=== PATIENT | female | born 1985 | race Hispanic/Latino ===

== ENCOUNTER 2017-12-25 16:42 | Emergency (ER) | payer OTHER ==
[2017-12-25] MEDS ORDERED: KETOROLAC TROMETHAMINE 60 MG/2 ML VIAL ONE (17:50)
[2017-12-25] MEDS ORDERED: DEXAMETHASONE SOD PHOSPHATE 10MG/ML 1ML VIAL ONE (17:50)
== END 2017-12-25 18:02 | disposition home or self-care (01) ==
LOC: EDH 16:42
DX: S16.1XXA Strain of muscle, fascia and tendon at neck level, initial encounter (principal); S29.012A Strain of muscle and tendon of back wall of thorax, initial encounter; Z88.2 Allergy status to sulfonamides; W01.0XXA Fall on same level from slipping, tripping and stumbling without subsequent striking against object, initial encounter; Y93.89 Activity, other specified; Y92.89 Other specified places as the place of occurrence of the external cause; Y99.8 Other external cause status
CPT/HCPCS: 96372 ×2; 99284; J1100; J1885

== ENCOUNTER 2018-09-17 23:56 | Emergency (ER) | payer OTHER, SELFPAY ==
[2018-09-18 00:23] LABS: APPEARANCE,URINE Clear (CLEAR); BILIRUBIN,URINE Negative (NEGATIVE); COLOR,URINE Yellow (YELLOW); GLUCOSE, URINE (UA) Negative (NEGATIVE); KETONES,URINE Negative (NEGATIVE); LEUKOCYTE ESTERASE ,URINE Small (NEGATIVE); NITRATE,URINE Negative (NEGATIVE); OCCULT BLOOD,URINE Large (NEGATIVE); PH,URINE 6.5 (5.0-8.0); PROTEIN,URINE Negative (NEGATIVE); UROBILINOGEN,URINE 0.2 mg/dL (0.2-1.0)
[2018-09-18 00:41] LABS: BACTERIA,URINE None Seen /HPF (None Seen); WBC,URINE 0-1 /HPF (0-1)
[2018-09-18 00:42] LABS: SQUAMOUS EPITHELIAL CELL,UR Rare /HPF (0-2)
[2018-09-18 01:09] LABS: BASOPHILS % (AUTO) 0.4 % (0.0-5.0); HEMATOCRIT 27.1 % (36-48); LYMPHOCYTES % (AUTO) 27.3 % (21.0-51.0); MEAN CORPUSCULAR HEMOGLOBIN 20.5 pg (27.0-33.0); MEAN CORPUSCULAR HGB CONC 31.1 g/dL (32.0-36.0); MEAN CORPUSCULAR VOLUME 65.9 fL (79-99); MONOCYTES % (AUTO) 5.5 % (3.0-13.0); NEUTROPHILS % (AUTO) 63.8 % (40.0-77.0); NUCLEATED RED BLOOD CELLS 0.1 % (0.0-0.19); PLATELET COUNT (AUTO) 230 K/uL (130-400); RED BLOOD CELL COUNT(AUTO) 4.11 MIL/uL (4.00-5.50); RED CELL DISTRIBUTION WIDTH 17.9 % (11.0-15.5); WHITE BLOOD COUNT (AUTO) 6.7 K/uL (4.8-10.8)
[2018-09-18 01:16] LABS: CREATININE 0.7 mg/dL (0.5-1.5); POTASSIUM 3.8 mmol/L (3.5-5.1)
== END 2018-09-18 02:16 | disposition home or self-care (01) ==
LOC: EDH 23:56
DX: N39.0 Urinary tract infection, site not specified (principal); G43.909 Migraine, unspecified, not intractable, without status migrainosus; Z88.2 Allergy status to sulfonamides; Z88.8 Allergy status to other drugs, medicaments and biological substances
CPT/HCPCS: 36415; 80048; 81001; 85025; 93005

== ENCOUNTER → 2019-01-16 | Outpatient (CLI) | payer OTHER | END | disposition home or self-care (01) | LOC: LAB 12:36 | PROVIDERS: ATTEND Internal Medicine Gastroenterology | DX: R10.12 Left upper quadrant pain (principal) | CPT/HCPCS: 36415; 86677 ==

== ENCOUNTER 2021-06-29 11:23 | Emergency (ER) | payer OTHER ==
[~2021-06-29] VITALS: Ht 170.2 cm; Wt 98.9 kg
[2021-06-29 11:29] VITALS: BP 116/77
[2021-06-29 11:53] LABS: APPEARANCE,URINE Clear (CLEAR); BILIRUBIN,URINE Negative (NEGATIVE); COLOR,URINE Yellow (YELLOW); GLUCOSE, URINE (UA) Negative (NEGATIVE); KETONES,URINE Negative (NEGATIVE); LEUKOCYTE ESTERASE ,URINE Negative (NEGATIVE); NITRATE,URINE Negative (NEGATIVE); OCCULT BLOOD,URINE Negative (NEGATIVE); PH,URINE 7.5 (5.0-8.0); PROTEIN,URINE Negative (NEGATIVE); UROBILINOGEN,URINE 0.2 mg/dL (0.2-1.0)
[2021-06-29 12:15] LABS: BASOPHILS % (AUTO) 0.5 % (0.0-5.0); EOSINOPHILS % (AUTO) 3.8 % (0.0-8.0); HEMATOCRIT 39.7 % (36-48); LYMPHOCYTES % (AUTO) 21.7 % (21.0-51.0); MEAN CORPUSCULAR HEMOGLOBIN 26.6 pg (27.0-33.0); MEAN CORPUSCULAR HGB CONC 31.7 g/dL (32.0-36.0); MEAN CORPUSCULAR VOLUME 83.8 fL (79-99); MONOCYTES % (AUTO) 5.5 % (3.0-13.0); PLATELET COUNT (AUTO) 199 K/uL (130-400); RED BLOOD CELL COUNT(AUTO) 4.74 MIL/uL (4.00-5.50); RED CELL DISTRIBUTION WIDTH 13.9 % (11.0-15.5); WHITE BLOOD COUNT (AUTO) 7.6 K/uL (4.8-10.8)
[2021-06-29 12:23] LABS: CREATININE 0.6 mg/dL (0.5-1.5); POTASSIUM 4.3 mmol/L (3.5-5.1)
[2021-06-29 12:27] LABS: ALBUMIN 3.2 g/dL (3.5-5.0); BILIRUBIN,TOTAL 0.4 mg/dL (0.2-1.0); TOTAL PROTEIN, SERUM 6.9 g/dL (6.0-8.3)
[2021-06-29] MEDS ORDERED: DIAZEPAM 5 MG TABLET PO ONE (13:30)
[2021-06-29] MEDS ORDERED: KETOROLAC 30MG VIAL (30MG/ML) IM ONE (13:30)
[2021-06-29] MEDS ORDERED: CYCL10TA16 PO (14:13)
[2021-06-29] MEDS ORDERED: NAPR500T6 PO (14:13)
== END 2021-06-29 14:32 | disposition home or self-care (01) ==
LOC: EDH 11:23
DX: M62.838 Other muscle spasm (principal); Z88.2 Allergy status to sulfonamides; Z88.8 Allergy status to other drugs, medicaments and biological substances; Z79.899 Other long term (current) drug therapy; Z98.890 Other specified postprocedural states
CPT/HCPCS: 36415; 72125; 80053; 81003; 85025; 93005; J1885

== ENCOUNTER 2021-12-05 01:48 | Emergency (ER) | payer OTHER ==
[~2021-12-05] VITALS: Ht 170.2 cm; Wt 97.1 kg
[~2021-12-05 01:48] MED LIST: CYCL10TA16 PO; NAPR500T6 PO
[2021-12-05] MEDS ORDERED: IBUPROFEN 600 MG TABLET PO ONE (02:30)
[2021-12-05] MEDS ORDERED: HYDROCODONE/ACETAMINOPHEN 5/325 MG TAB PO ONE (02:30)
[2021-12-05] MEDS ORDERED: IBUP-2070 PO (04:50)
[2021-12-05 05:00] VITALS: BP 124/72
== END 2021-12-05 05:15 | disposition home or self-care (01) ==
LOC: EDH 01:48
DX: S40.812A Abrasion of left upper arm, initial encounter (principal); S40.811A Abrasion of right upper arm, initial encounter; S10.91XA Abrasion of unspecified part of neck, initial encounter; S00.91XA Abrasion of unspecified part of head, initial encounter; Z88.2 Allergy status to sulfonamides; Z79.1 Long term (current) use of non-steroidal anti-inflammatories (NSAID); Y04.0XXA Assault by unarmed brawl or fight, initial encounter; Y93.89 Activity, other specified; Y92.89 Other specified places as the place of occurrence of the external cause; Y99.8 Other external cause status
CPT/HCPCS: 70450; 70486

== ENCOUNTER 2025-01-07 18:49 | Inpatient (IN) | payer OTHER ==
[~2025-01-07] VITALS: Ht 170.2 cm; Wt 93.4 kg
[~2025-01-07 18:49] MED LIST changes: +IBUP-1492 PO; +NAPR-1506 PO; -NAPR500T6 PO
--- NOTE | 2025-01-07 19:04 | NUR ---
UA CUP PROVIDED
--- NOTE | 2025-01-07 19:06 | NUR ---
PT IN RESTROOM AT THIS TIME
[2025-01-07 19:18] LABS: IMMATURE GRANULOCYTE ABSOLUTE 0.03 K/uL (0-1); NUCLEATED RED BLOOD CELLS 0.0 % (0.0-0.19); PLATELET COUNT (AUTO) 247 K/uL (130-400); RED BLOOD CELL COUNT(AUTO) 4.98 MIL/uL (4.00-5.50); RED CELL DISTRIBUTION WIDTH 13.1 % (11.0-15.5); WHITE BLOOD COUNT (AUTO) 7.9 K/uL (4.8-10.8)
[2025-01-07 19:26] LABS: CREATININE 0.8 mg/dL (0.5-1.0); GLOMERULAR FILTR. RATE CALC 95.0 mL/min (>90); GLUCOSE,RANDOM 85.0 mg/dL (70-105); SODIUM SERUM 137.0 mmol/L (136-145); UREA NITROGEN, BLOOD 14.0 mg/dL (7-18)
[2025-01-07 19:31] LABS: CREATINE KINASE, TOTAL 139.0 U/L (21-232)
--- NOTE | 2025-01-07 19:37 | EKG ---
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
--- NOTE | 2025-01-07 19:40 | HMCIMG ---
EXAM: CR Chest, 1 View. CLINICAL HISTORY: sob COMPARISON: None provided. FINDINGS: LUNGS: The lungs show no infiltrate or other acute finding. PLEURAL SPACES: No evidence of pleural effusion or pneumothorax. MEDIASTINUM: Cardiac size and mediastinal contours within normal limits. BONES: No aggressive appearing osseous lesion seen. IMPRESSION: No acute cardiopulmonary pathology is evident. /Ellijay
[2025-01-07 19:47] LABS: APPEARANCE,URINE CLEAR (CLEAR); GLUCOSE, URINE (UA) NEGATIVE (NEGATIVE); LEUKOCYTE ESTERASE ,URINE NEGATIVE Leu/uL (NEGATIVE); NITRATE,URINE NEGATIVE (NEGATIVE); OCCULT BLOOD,URINE NEGATIVE (NEGATIVE)
[2025-01-07 19:52] LABS: ADD UA MICROSCOPIC NO
[2025-01-07 19:55] LABS: AMPHET/METH SCREEN,URINE NEGATIVE (NEGATIVE); BARBITURATE SCREEN, URINE NEGATIVE (NEGATIVE); CANNABINOID SCREEN,URINE NEGATIVE (NEGATIVE); COCAINE SCREEN,URINE NEGATIVE (NEGATIVE)
--- NOTE | 2025-01-07 20:14 | HP ---
History of Present Illness Reason for Visit: sob History of Present Illness Ms Roxana Lema is a 39-year-old female That was seen and examined today on 01/07/2025. Patient is a good historian of personal health Patient states that he came to the emergency department with a chief complaint of shortness of breaths. Onset was three days ago. Location is to lungs. Duration is on and off. Character is described as not getting enough air. There was no alleviating factors. Symptoms are aggravated with physical activity. Patient denies any associated dizziness. Patient does report associated chest discomfort. Today in the emergency department CBC unremarkable, chest x-ray unremarkable, troponin mildly elevated. Emergency room physician recommended patient be admitted with a diagnosis of elevated troponin. Past Medical History ADDITIONAL PAST MEDICAL HISTORY: [Denies] SOCIAL HISTORY: [Negative for smoking, alcohol use, drug use. Patient lives with the has been, Darrel Gr. Patient is typically independent of all her ADLs. Patient denies difficulty paying her bills.] SURGICAL HISTORY: [Hysterectomy, suction D&C, left breast lumpectomy] Review of Systems General: No Fever, No Chills, No Night Sweats, No Fatigue, No Malaise, No Appetite, No Other HEENT: No Head Aches, No Visual Changes, No Eye Pain, No Ear Pain, No Dysphasia, No Sinus Congestion, No Post Nasal Drip, No Sore Throat, No Other Pulmonary: Dyspnea; No Cough, No Pleuritic Chest Pain, No Other Cardiovascular: Chest Pain; No: Palpitations, Orthopnea, Paroxysmal Noc. Dyspnea, Edema, Lt Headedness, Other Gastrointestinal: No: Nausea, Vomiting, Abdominal Pain, Diarrhea, Constipation, Melena, Hematochezia, Other Genitourinary: No Dysuria, No Frequency, No Incontinence, No Hematuria, No Retention, No Other Musculoskeletal: No: other, neck pain, shoulder pain, arm pain, back pain, hand pain, leg pain, foot pain Skin: No Urticaria, No Rash, No Other Neurological: No: Weakness, Numbness, Incoordination, Change in speech, Confusion, Seizures, Other Allergies: Coded Allergies: Sulfa (Sulfonamide Antibiotics) (Unverified Allergy, Unknown, 06/29/21) iron (Unverified Allergy, Unknown, 06/29/21) Scheduled Cyclobenzaprine HCl (Flexeril), 10 MG PO TID Naproxen (Naproxen), 500 MG PO BIDPC Scheduled PRN Ibuprofen (Ibuprofen), 600 MG PO Q6H PRN for PAIN Exam Vital Signs Vital Signs Date Time Temp Pulse Resp B/P (MAP) Pulse Ox O2 Delivery O2 Flow Rate FiO2 01/07/25 18:51 98.2 65 18 124/78 99 Room Air 0 General Appearance: Alert, Oriented X3, Cooperative, No acute distress HEENT: Atraumatic, PERRLA, EOMI Respiratory: Clear to auscultation, Normal air movement, NL respiratory effort Cardiovascular: Regular rate, Regular rhythm, Normal S1, Normal S2 Abdominal: Normal bowel sounds, Soft, No tenderness Extremities: No edema Skin: No breakdown, No significant lesion Neuro: Normal gait, Normal speech, Strength at 5/5 X4 ext, Sensation intact, Cranial nerves 3-12 NL Psych/Mental Status: Mental status NL, Mood NL, Thoughts/Content NL Assessment/Plan ASSESSMENT: [ Elevated troponin, POA Shortness of breath, POA] PLAN: [ Administer aspirin 162 mg by mouth times 1 dose Continue aspirin 81 mg by mouth once daily Nitroglycerin sublingual 0.4 mg as needed for chest pain every 5 minutes, max 3 doses, hold for systolic blood pressure less than 100 mmHg. Trend troponin every 6 hours x 3 sets Supplemental oxygen to maintain O2 saturation greater than 92% Consult cardiology if any elevation in troponin or troponin uptrending DuoNebs every 6 hours Consider resuming home medications once they have been reconciled At time of admission home medications not been reconciled. GI prophylaxis, famotidine DVT prophylaxis, Lovenox ADVANCED CARE PLANNING 1. Which of the following were discussed? Hospice Care - Yes Therapeutic options - yes Advance Directives - Yes - patient states he does not have any advance directives in place at this time, however has been can make decisions for her if she becomes unable. Other discussions - patient wishes to remain a full code 2. Discussed with who? Patient 3. Voluntary nature of this service was explained to the patient? Yes 4. Amount of time spent - ___16 minutes____ 5. Reviewed by Physician? (if this service was performed by NPP) Yes This document was generated in part using voice recognition software, occasional wrong word or sound alike substitutions may have occurred due to the inherent limitations of voice recognition software. Read the chart carefully and recognize using context, where the substitutions have occurred. Although every effort was made to edit the content, hydraulic rockbreaker operator and typing errors may occur ATTESTATION BY PHYSICIAN I have seen and examined the patient. I reviewed the documentation, medical decision making, and treatment plan as noted by the mid-level provider above. I agree with the findings and plan of care. ] SAMMY MONROY [facility] Jan 07, 2025 20:14
--- NOTE | 2025-01-07 20:19 | HMCIMG ---
EXAM: CT Head Without IV contrast. CLINICAL HISTORY: dizziness TECHNIQUE: Axial computed tomography images of the head/brain without intravenous contrast. COMPARISON: None provided. FINDINGS: BRAIN: No evidence of acute hemorrhage. No mass lesion. No CT evidence for acute territorial infarct. No midline shift or extra-axial collections. VENTRICLES: No hydrocephalus. ORBITS: The orbits are unremarkable. SINUSES AND MASTOIDS: The paranasal sinuses and mastoid air cells are clear. BONES: No fracture. SOFT TISSUES: Unremarkable. IMPRESSION: No acute intracranial abnormality. /Longs
--- NOTE | 2025-01-07 20:27 | ERN ---
General Chief Complaint: Multiple Complaints Stated Complaint: MULTIPLE COMPLAINTS Time Seen by MD: 18:52 Time Seen by Midlevel: 18:52 Source: patient History of Present Illness Initial Comments 39-year-old female presents to the emergency department with chest discomfort and shortness of breath that has been ongoing for several days. Allergies: Coded Allergies: Sulfa (Sulfonamide Antibiotics) (Unverified Allergy, Unknown, 06/29/21) iron (Unverified Allergy, Unknown, 06/29/21) Home Meds Active Scripts Ibuprofen (Ibuprofen) 600 Mg Tablet, 600 MG PO Q6H PRN for PAIN, #30 TAB Prov:BRAD FREDERICK MD 12/05/21 Naproxen (Naproxen) 500 Mg Tablet.dr, 500 MG PO BIDPC, #15 TAB Prov:FITTINGJOSE 06/29/21 Cyclobenzaprine HCl (Flexeril) 10 Mg Tab, 10 MG PO TID, #15 TAB Prov:FITTINGJOSE RN LPN CNA 06/29/21 Past Medical History Past Medical History: Anxiety, Liver Disease Medical History Other: FATTY LIVER, INTSETINE ISSUES Past Surgical History: Hysterectomy Social History Social History: Negative, Lives with family Female( History) History: Not Applicable ROS Dictation CONSTITUTIONAL: Negative except for HPI HEAD/FACE: Negative except for HPI EENT: Negative except for HPI RESPIRATORY: Negative except for HPI GASTROINTESTINAL/ABDOMINAL: Negative except for HPI GENITOURINARY: Negative except for HPI MUSCULOSKELETAL: Negative except for HPI INTEGUMENTARY: Negative except for HPI NEUROLOGICAL/PSYCH: Negative except for HPI HEMATOLOGIC/LYMPHATIC: Negative except for HPI All Systems Negative, Except as noted above. 13 point review of systems assessed and all negative except for above. Physical Exam Physical Exam Dictation Vital Signs reviewed General Appearance: Alert, oriented x 3, no acute distress, well developed, nourished. Head and Face: non-traumatic. Eyes: PERRL, pink conjunctivas, eyelid no trauma, anterior chamber with arcus senilis. Ears: Pinnas intact and no signs of trauma or erythema ear canals clear and no discharge TM no erythema Nose: No discharge, no bleeding. Oropharynx: Mouth normal, tongue pink, pharynx clear,no erythema, tonsils no exudates, no abscesses noted, mucous membrane moist Neck: Supple, non-tender, no thyromegaly, no masses, no JVD, no bruits Breast:Deferred Chest:No tenderness, no crepitus, no paradoxical movement, no retractions Lungs:Clear, well-ventilated, symmetric, no rales, no wheezing, no rhonchi, no stridor, good breath sounds bilaterally Heart: Regular rate, regular rhythm, no murmur, no gallops Vascular: no peripheral edema, Abdomen: Soft, positive bowel sounds, nondistended, no guarding, nontender, no rebound, no masses no hepatomegaly, no splenomegaly, no Jon's sign, no hernias. Rectal: Deferred Genital: Deferred Neurological: Normal speech, motor function intact, sensory function intact Musculoskeletal: Neck nontender, full range of motion, back nontender, full range of motion, Extremities: nontender, full range of motion Skin: Color pink, dry, no turgor, no rash, no lacerations, no abrasions, no contusions. Lymphatic: Deferred Results Laboratory and Microbiology Lab and Micro Result Laboratory Tests Test 01/07/25 19:12 01/07/25 19:37 White Blood Count 7.9 K/uL (4.8-10.8) Red Blood Count 4.98 MIL/uL (4.00-5.50) Hemoglobin 13.9 g/dL (12.0-16.0) Hematocrit 42.4 % (36-48) Mean Corpuscular Volume 85.1 fL (79-99) Mean Corpuscular Hemoglobin 27.9 pg (27.0-33.0) Mean Corpuscular Hemoglobin Concent 32.8 g/dL (32.0-36.0) Red Cell Distribution Width 13.1 % (11.0-15.5) Platelet Count 247 K/uL (130-400) Mean Platelet Volume 11.7 fL (7.5-10.5) H Immature Granulocyte % (Auto) 0.4 % (0-1) Neutrophils (%) (Auto) 66.0 % (40.0-77.0) Lymphocytes (%) (Auto) 22.4 % (21.0-51.0) Monocytes (%) (Auto) 7.4 % (3.0-13.0) Eosinophils (%) (Auto) 3.3 % (0.0-8.0) Basophils (%) (Auto) 0.5 % (0.0-5.0) Neutrophils # (Auto) 5.2 K/uL (1.8-7.7) Lymphocytes # (Auto) 1.8 K/uL (1.0-4.8) Monocytes # (Auto) 0.6 K/uL (0.1-1.0) Eosinophils # (Auto) 0.26 K/uL (0.00-0.70) Basophils # (Auto) 0.04 K/uL (0.00-0.20) Absolute Immature Granulocyte (auto 0.03 K/uL (0-1) Nucleated Red Blood Cells 0.0 % (0.0-0.19) Sodium Level 137 mmol/L (136-145) Potassium Level 3.8 mmol/L (3.5-5.1) Chloride Level 100 mmol/L (101-111) L Carbon Dioxide Level 31 mmol/L (21-32) Blood Urea Nitrogen 14 mg/dL (7-18) Creatinine 0.8 mg/dL (0.5-1.0) Glomerular Filtration Rate Calc 95 mL/min (>90) Random Glucose 85 mg/dL (70-105) Total Calcium 8.8 mg/dL (8.5-10.1) Magnesium Level 1.90 mg/dL (1.80-2.40) Total Creatine Kinase 139 U/L (21-232) Troponin I High Sensitivity 58 ng/L (4-50) *H Urine Color YELLOW (YELLOW) Urine Appearance CLEAR (CLEAR) Urine pH 5.5 (5.0-8.0) Urine Specific Felch 1.028 (1.001-1.031) Urine Protein NEGATIVE mg/dL (NEGATIVE) Urine Glucose (UA) NEGATIVE mg/dL (NEGATIVE) Urine Ketones NEGATIVE mg/dL (NEGATIVE) Urine Occult Blood NEGATIVE (NEGATIVE) Urine Nitrate NEGATIVE (NEGATIVE) Urine Bilirubin NEGATIVE mg/dL (NEGATIVE) Urine Urobilinogen 0.2 mg/dL (0.2-1.0) Urine Leukocyte Esterase NEGATIVE Jamal/uL Urine Opiates Screen NEGATIVE (NEGATIVE) Urine Barbiturates Screen NEGATIVE (NEGATIVE) Urine Phencyclidine Screen NEGATIVE (NEGATIVE) Urine Amphetamines Screen NEGATIVE (NEGATIVE) Urine Benzodiazepines Screen NEGATIVE (NEGATIVE) Urine Cocaine Screen NEGATIVE (NEGATIVE) Urine Marijuana (THC) Screen NEGATIVE (NEGATIVE) Labs Reviewed?: Yes MDM MDM: Differential diagnosis: Acute coronary syndrome, pneumonia, bronchitis Rationale: Tests considered and ordered secondary to shared decision making include: Previous outside records reviewed: Old ER visits. Risk of complication and/or morbidity or mortality of patient management: None Medications-Per medication reconciliation Need for hospitalization: Patient does meet criteria for hospitalization. Need for emergency major/minor surgery: No There are no social concerns with this patient. Prescription drug management Prescriptions will include symptomatic care Patient's prior external medical records from other ER visits were reviewed by me as indicated. Prior testing and results from previous visits were reviewed. Prior tests were taken into account with medical decision making and resource utilization, independent historian/historians were used to obtain complete medical history. I independently interpreted the test that were performed, results were reviewed by me and considered findings on radiology if ordered. Medical management and examination interpretation discussions were had by me with other qualified healthcare professionals as indicated for the patient's care. ED Course Orders Procedure Category Date Status Time 12 Lead Ekg Tracing- EKG 01/07/25 Complete Technical 19:00 Cbc With Differential LAB 01/07/25 Complete 19:00 Basic Metabolic Panel LAB 01/07/25 Complete 19:00 Creatine Kinase, Total LAB 01/07/25 Complete 19:00 Magnesium LAB 01/07/25 Complete 19:00 Troponin I High LAB 01/07/25 Complete Sensitivity 19:00 Chest 1vw RAD 01/07/25 Resulted 19:00 Ct Head/Brain W/O CT 01/07/25 Resulted Contrast 19:00 Urinalysis Profile LAB 01/07/25 Complete 19:37 Drug Screen Urine LAB 01/07/25 Complete 19:37 Troponin I High LAB 01/08/25 Verified Sensitivity 01:00 Troponin I High LAB 01/08/25 Verified Sensitivity 07:00 Troponin I High LAB 01/08/25 Verified Sensitivity 13:00 Admit Orders ADM 01/07/25 Transmitted 20:13 Basic Metabolic Panel LAB 01/08/25 Verified 04:00 Cbc With Differential LAB 01/08/25 Verified 04:00 Magnesium LAB 01/08/25 Verified 04:00 Phosphorus LAB 01/08/25 Verified 04:00 Activity: Ad Cora CPOE 01/07/25 Transmitted 20:13 Apply Knee High Teds CPOE 01/07/25 Transmitted 20:13 Apply Scds CPOE 01/07/25 Transmitted 20:13 Condition: CPOE 01/07/25 Transmitted 20:13 Nurse To Enter Home CPOE 01/07/25 Transmitted Medication 20:13 Oxygen By Nc/Pulse Ox CPOE 01/07/25 Transmitted 20:13 Telemetry Monitoring CPOE 01/07/25 Transmitted 20:13 Vital Signs(Adult CPOE 01/07/25 Transmitted Hospitalist) 20:13 Acetaminophen 325 Tab PHA 01/07/25 In Process (Tylenol 325mg Tab 20:30 Aspirin 81mg Chew Tab PHA 01/07/25 In Process (Aspirin 81mg Chew 20:30 Aspirin 81mg Ec Tab PHA 01/08/25 In Process (Aspirin 81mg Ec Tab 09:00 Ipratropium/Albuterol PHA 01/08/25 In Process Neb (Duoneb) 00:00 Enoxaparin Sodium 40 PHA 01/08/25 In Process Mg/0.4 Ml (Lovenox) 09:00 Famotidine 20mg Tab PHA 01/08/25 In Process (Pepcid 20mg Tab) 09:00 Hydralazine 20mg Inj PHA 01/07/25 In Process (Apresoline 20mg In 20:30 Ondansetron 4mg Inj PHA 01/07/25 In Process (Zofran 4mg Inj) 20:30 Morphine 4mg Syg PHA 01/07/25 In Process (Morphine 4mg Syg) 20:30 Lactulose 20 Gm/30 Ml PHA 01/07/25 In Process Udcup (Constulose 20:30 Nitroglycerin 0.4mg PHA 01/07/25 In Process Sl Tab (Nitrostat) 20:30 Vital Signs Date Time Temp Pulse Resp B/P (MAP) Pulse Ox O2 Delivery O2 Flow Rate FiO2 01/07/25 18:51 98.2 65 18 124/78 99 Room Air 0 DX & DISP Disposition: Inpatient Departure Impression: Primary Impression: Elevated troponin Condition: Stable Referrals: SELF,REFERRAL (PCP) I have reviewed the case, and I agree with, Diagnosis and Plan I performed the substantive portion of the visit. I have reviewed and personally made and approve the management plan that is documented in the note by myself or the JOSSY. I acknowledge for responsibility for the patient's management plan. DOMINGA TO PAC Jan 07, 2025 20:27
[2025-01-07] MEDS ORDERED: LACTULOSE 20 GM/30 ML UDCUP PO PRN (20:30)
[2025-01-07] MEDS ORDERED: NITROGLYCERIN 0.4 MG SL TAB SL PRN (20:30)
[2025-01-07] MEDS: ASPIRIN 81MG CHEW TAB PO ONE (20:43)
[2025-01-08] VITALS (40 sets, daily range): BP systolic 99–138; BP diastolic 39–83; PULSE 56–88; RESP 12–24; TEMP 98.1–98.5; O2SAT 97–99
--- NOTE | 2025-01-08 03:03 | NUR ---
PATIENT REPORTS SHE DOES NOT TAKE PRESCRIBED MEDICATIONS
[2025-01-08 06:42] LABS: IMMATURE GRANULOCYTE ABSOLUTE 0.02 K/uL (0-1); NUCLEATED RED BLOOD CELLS 0.0 % (0.0-0.19); PLATELET COUNT (AUTO) 209 K/uL (130-400); RED BLOOD CELL COUNT(AUTO) 4.69 MIL/uL (4.00-5.50); RED CELL DISTRIBUTION WIDTH 13.0 % (11.0-15.5); WHITE BLOOD COUNT (AUTO) 7.1 K/uL (4.8-10.8)
[2025-01-08 06:57] LABS: CREATININE 0.7 mg/dL (0.5-1.0); GLOMERULAR FILTR. RATE CALC 111.0 mL/min (>90); GLUCOSE,RANDOM 93.0 mg/dL (70-105); PHOSPHORUS 4.4 mg/dL (2.5-4.9); SODIUM SERUM 138.0 mmol/L (136-145); UREA NITROGEN, BLOOD 11.0 mg/dL (7-18)
[2025-01-08] MEDS: ENOXAPARIN SODIUM 40 MG/0.4 ML SYRINGE SQ SCH (08:37)
[2025-01-08] MEDS: ASPIRIN 81 MG EC TAB PO SCH (08:37)
[2025-01-08] MEDS: FAMOTIDINE 20MG TAB PO SCH (08:37)
--- NOTE | 2025-01-08 10:25 | NUR ---
JANICE KUMAR RN TRANSPORTED HER OWN PT TO BED 208
--- NOTE | 2025-01-08 11:10 | NUR ---
DCP:HOME Pt states that she primarily lives with her 3 daughters (1 adult, 2 minors) and states that her is at the home on and off. Pt receives $535 in SNAP benefits a month. Pt denies having any DME, home health, or provider services. Pt states that she is able to complete ADLs independently. PCP is Manju Corrales and uses [facility] for any RX needs. At DC pt states that she prefers to go home and family can assist with transportation.
--- NOTE | 2025-01-08 12:12 | CONS ---
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 She has noted dyspnea on exertion with household activities. She denies pleuritic chest pain or hemoptysis. Currently at rest she is breathing comfortably. Her D-dimer today was normal. Cardiology has been consulted for chest pain. Over the last 3 weeks, the patient has had an increase of stress at home (she had a argument with her and was worried about "losing her and marriage, and began to experience dyspnea and left sided chest discomfort with or without exertion. In addition her daughter runoff with her boyfriend also 2-3 weeks ago. The chest discomfort is described as a tightness and a pinching sensation that radiates to the back and lasts for a few seconds. The patient denies accompanying symptoms, aggravating factors, or relieving factors. Troponin of 58, 61, and 58. EKG demonstrated normal sinus rhythm with a heart rate of 59 bpm with no acute ischemia noted. She complained of a tender scalp and sore bilateral sternocleidomastoid mastoid muscles. CT head 01/07 was without acute findings. 2D echocardiogram is pending. Past Medical History: As per HPI and summarized below Past Surgical History: Liver biopsy Hysterectomy Left breast lumpectomy Family History: The patient denies a family history of CAD, MA, or CVA. Social History: The patient lives with her . Habits: The patient denies alcohol, tobacco, or illicit drug use. Home Meds: None Current Meds: Current Medications Medications Dose Ordered Sig/Edmond Start Time Stop Time Status Last Admin Acetaminophen 650 mg Q6H PRN 01/07/25 20:30 02/06/25 20:29 Aspirin 81 mg DAILY 01/08/25 09:00 02/07/25 08:59 01/08/25 08:37 Albuterol 1 UDVIAL [id number] 01/08/25 00:00 02/07/25 00:00 01/08/25 11:52 Enoxaparin Sodium 40 mg DAILY 01/08/25 09:00 02/07/25 08:59 01/08/25 08:37 Famotidine 20 mg DAILY 01/08/25 09:00 02/07/25 08:59 01/08/25 08:37 Hydralazine HCl 10 mg Q6H PRN 01/07/25 20:30 02/06/25 20:29 Ondansetron HCl 4 mg Q6H PRN 01/07/25 20:30 02/06/25 20:29 Morphine Sulfate 2 mg Q4H PRN 01/07/25 20:30 01/14/25 20:29 Lactulose 20 gm BID PRN 01/07/25 20:30 02/06/25 20:29 Nitroglycerin 0.4 mg PROTOCOL PRN 01/07/25 20:30 02/06/25 20:29 Albuterol 1 UDVIAL [id number] 01/08/25 00:00 02/07/25 00:00 Guaifenesin 400 mg Q4H PRN 01/07/25 21:00 02/06/25 20:59 Review of Systems: CONST: No fever, fatigue, or weight changes. EYES: No recent vision problems. ENT: No congestion, ear pain, or sore throat. C/V: No chest pain, palpitations, or edema. RESP: No cough, congestion, wheezing or shortness of breath. GI: No abdominal pain, nausea, vomiting, constipation, or diarrhea. : No incontinence or dysuria. SKIN: No rash. NEURO: No headache, focal numbness or weakness, dizziness, or seizures. PSYCH: No depression or anxiety. HEME: No abnormal bruising or bleeding. LYMPH: No swollen glands. Physical Examination: GENERAL: No acute distress. HEAD: Normal with no signs of head trauma. EYES: PERRLA, EOMI, conjunctiva and sclera normal. ENT: Hearing grossly intact, normal oropharynx. NECK: Supple without JVD. There is no tenderness, lymphadenopathy, or masses. No thyromegaly. Normal carotid upstrokes without bruits. LUNGS: Clear breath sounds bilaterally. No wheezes, or rhonchi. HEART: Normal rate and rhythm. Normal S1 and S2 without murmurs, gallop or rub. VASC: Peripheral pulses +2 bilaterally. ABD: Bowel sounds normal, soft, nontender, no masses, no organomegaly. No audible bruits. : Not examined LYMPH: No lymphadenopathy noted. EXT: No clubbing, cyanosis or edema. SKIN: Eczema to the left ankle NEURO: Awake, alert, and oriented x3. No focal sensory or strength deficits noted. Vital Signs (last 8hr) Date Time Temp Pulse Resp B/P (MAP) Pulse Ox O2 Delivery O2 Flow Rate FiO2 01/08/25 11:53 60 18 N/A Room Air 01/08/25 11:53 60 18 01/08/25 06:59 84 18 01/08/25 06:58 84 18 N/A Room Air 01/08/25 04:52 98.6 55 18 104/47 97 Room Air* 0 21 Laboratory: Hematology Labs: Test 01/08/25 06:15 Range/Units White Blood Count 7.1 4.8-10.8 K/uL Red Blood Count 4.69 4.00-5.50 MIL/uL Hemoglobin 13.0 12.0-16.0 g/dL Hematocrit 39.8 36-48 % Mean Corpuscular Volume 84.9 79-99 fL Mean Corpuscular Hemoglobin 27.7 27.0-33.0 pg Mean Corpuscular Hemoglobin Concent 32.7 32.0-36.0 g/dL Red Cell Distribution Width 13.0 11.0-15.5 % Platelet Count 209 130-400 K/uL Mean Platelet Volume 11.7 H 7.5-10.5 fL Immature Granulocyte % (Auto) 0.3 0-1 % Neutrophils (%) (Auto) 59.2 40.0-77.0 % Lymphocytes (%) (Auto) 27.9 21.0-51.0 % Monocytes (%) (Auto) 7.8 3.0-13.0 % Eosinophils (%) (Auto) 4.4 0.0-8.0 % Basophils (%) (Auto) 0.4 0.0-5.0 % Neutrophils # (Auto) 4.2 1.8-7.7 K/uL Lymphocytes # (Auto) 2.0 1.0-4.8 K/uL Monocytes # (Auto) 0.6 0.1-1.0 K/uL Eosinophils # (Auto) 0.31 0.00-0.70 K/uL Basophils # (Auto) 0.03 0.00-0.20 K/uL Absolute Immature Granulocyte (auto 0.02 0-1 K/uL Nucleated Red Blood Cells 0.0 0.0-0.19 % Chemistry Labs: Test 01/08/25 06:15 01/07/25 19:12 Range/Units Sodium Level 138 136-145 mmol/L Potassium Level 5.2 H 3.5-5.1 mmol/L Chloride Level 103 101-111 mmol/L Carbon Dioxide Level 32 21-32 mmol/L Blood Urea Nitrogen 11 7-18 mg/dL Creatinine 0.7 0.5-1.0 mg/dL Glomerular Filtration Rate Calc 111 >90 mL/min Random Glucose 93 70-105 mg/dL Total Calcium 8.7 8.5-10.1 mg/dL Phosphorus Level 4.4 2.5-4.9 mg/dL Magnesium Level 1.90 1.80-2.40 mg/dL Troponin I High Sensitivity 58 *H 4-50 ng/L B-Type Natriuretic Peptide 6 0-100 pg/mL Total Creatine Kinase 139 21-232 U/L Diagnostics / Radiology: Impression and Plan: Atypical chest pain: Psychosocial stressors: Minor nonspecific troponin elevation Troponin of 58, 61, and 58: -probable catecholamine induced vasoreactivity, headache, and dyspnea -2D echocardiogram to evaluate for Takotsubo cardiomyopathy -CT of the chest with PE protocol to screen for pulmonary embolism (given prominent complains of dyspnea, pleuritic chest pain in the interscapular region, and left leg pain consider occult PE. Tension headache: CT head 01/07 was without acute findings. Comorbidities: Migraines Anxiety Liver tumor s/p biopsy with benign findings Fatty liver Metaplasia of the esophagus and intestine Renal cyst PHYSICIAN ATTESTATION OF PHYSICIAN CASE INVESTIGATOR DOCUMENTATION: I attest that I was physically present for the beverly portions of the service and evaluated the patient with the Physician Dermatology Procedural Physician, and I reviewed and discussed the case with the Physician Dermatology Procedural Physician and made modifications to the Physician Dermatology Procedural Physician's findings and plans of care as documented above NELIA SARAVIA Jan 08, 2025 12:12 TRAY VASQUEZ MD Jan 08, 2025 14:30
--- NOTE | 2025-01-08 13:31 | PN ---
[facility] PROGRESS NOTE Date of Service: Jan 08, 2025 Time of Service: 13:31 History of Present Illness Reason for Visit: sob History of Present Illness Ms Roxana Lema is a 39-year-old female That was seen and examined today on 01/07/2025. Patient is a good historian of personal health. Patient states that he came to the emergency department with a chief complaint of shortness of breat hs. Onset was three days ago. Location is to lungs. Duration is on and off. Character is described as not getting enough air. There was no alleviating factors. Symptoms are aggravated with physical activity. Patient denies any associated dizziness. Patient does report associated chest discomfort. Today in the emergency department CBC unremarkable, chest x-ray unremarkable, troponin mildly elevated. Emergency room physician recommended patient be admitted with a diagnosis of elevated troponin." SUBJECTIVE: 01/08/2025: Patient was seen and examined at bedside. She complains of chest discomfort which started 2-3 weeks ago. It is non radiating and does not increase with deep inspiration. There is no point tenderness. Her troponins are mildly elevated, 58-61-58. Patient states that she has been taking baby aspirin at home. Chest discomfort is associated with shortness of breath. Additionally, she states that she has headache which is pressure-like, on the frontal bilateral aspect, and different from her migraine. She also states that she has tenderness along her sternocleidomastoid muscles. Notably, she has history of Dickerson esophagus s/p endoscopy. We have placed cardiology consult as well as tele psych consult for further management. REVIEW OF SYSTEMS CONSTITUTIONAL: Patient seems anxious and complains of chest pressure. NEUROLOGICAL: Complains of pressure-like headache on the frontal bilateral aspect with tenderness in sternocleidomastoid muscle. Denies motor weakness, sensory deficit. ENT: No hearing loss, otalgia, otorrhea, rhinitis, rhinorrhea, hoarseness, or sore throat. CARDIOVASCULAR: Chest discomfort. PULMONARY: Shortness of breath present and patient takes deep breaths intermittently. SLEEP: Positive for snoring GASTROINTESTINAL: History of Dickerson's esophagus. Constipation GENITOURINARY: Denies frequency, urgency, nocturia, hematuria or incontinence (Storage/Irritative symptoms.) Low urinary stream, straining to void, urinary intermittency or hesitancy, splitting of the voiding stream, terminal dribbling. DERMATOLOGIC: Eczema PSYCHIATRIC: History of anxiety. PHYSICAL EXAM GENERAL APPEARANCE: The patient is awake, alert, and oriented. NEUROLOGICAL: Cranial nerves II-XII grossly intact. Motor is 5/5 in bilateral upper and lower extremities proximal to distal. No sensory deficits. HEENT: Face is symmetric. Pupils are equal and reactive. Extraocular movements are intact. NECK: Supple. No JVD. No thyromegaly. No submental, submandibular, pre-/postauricular, occipital or supraclavicular lymphadenopathy. CHEST: Normal chest expansion. LUNGS: Absence of any rales, rhonchi or any wheezing. CARDIOVASCULAR: Regular. S1 and S2 normal. ABDOMEN: Soft, nontender, and nondistended. There is no rebound, voluntary guarding, or rigidity. : Deferred. EXTREMITIES: Non-edematous and not cyanotic. No clubbing. Good capillary refill. SKIN: Eczema Vital Signs (last 8hr) Date Time Temp Pulse Resp B/P (MAP) Pulse Ox O2 Delivery O2 Flow Rate FiO2 01/08/25 11:53 60 18 N/A Room Air 21 01/08/25 11:53 60 18 01/08/25 08:00 98.4 88 20 118/72 98 Room Air 0.0 21 01/08/25 06:59 84 18 01/08/25 06:58 84 18 N/A Room Air 21 LABS: Laboratory: Test 01/08/25 11:34 01/08/25 06:15 01/07/25 19:37 01/07/25 19:12 Range/Units D-Dimer Quantitative (PE/DVT) 160 0-500 ng/mL Troponin I High Sensitivity 60 *H 4-50 ng/L White Blood Count 7.1 4.8-10.8 K/uL Red Blood Count 4.69 4.00-5.50 MIL/uL Hemoglobin 13.0 12.0-16.0 g/dL Hematocrit 39.8 36-48 % Mean Corpuscular Volume 84.9 79-99 fL Mean Corpuscular Hemoglobin 27.7 27.0-33.0 pg Mean Corpuscular Hemoglobin Concent 32.7 32.0-36.0 g/dL Red Cell Distribution Width 13.0 11.0-15.5 % Platelet Count 209 130-400 K/uL Mean Platelet Volume 11.7 H 7.5-10.5 fL Immature Granulocyte % (Auto) 0.3 0-1 % Neutrophils (%) (Auto) 59.2 40.0-77.0 % Lymphocytes (%) (Auto) 27.9 21.0-51.0 % Monocytes (%) (Auto) 7.8 3.0-13.0 % Eosinophils (%) (Auto) 4.4 0.0-8.0 % Basophils (%) (Auto) 0.4 0.0-5.0 % Neutrophils # (Auto) 4.2 1.8-7.7 K/uL Lymphocytes # (Auto) 2.0 1.0-4.8 K/uL Monocytes # (Auto) 0.6 0.1-1.0 K/uL Eosinophils # (Auto) 0.31 0.00-0.70 K/uL Basophils # (Auto) 0.03 0.00-0.20 K/uL Absolute Immature Granulocyte (auto 0.02 0-1 K/uL Nucleated Red Blood Cells 0.0 0.0-0.19 % Sodium Level 138 136-145 mmol/L Potassium Level 5.2 H 3.5-5.1 mmol/L Chloride Level 103 101-111 mmol/L Carbon Dioxide Level 32 21-32 mmol/L Blood Urea Nitrogen 11 7-18 mg/dL Creatinine 0.7 0.5-1.0 mg/dL Glomerular Filtration Rate Calc 111 >90 mL/min Random Glucose 93 70-105 mg/dL Total Calcium 8.7 8.5-10.1 mg/dL Phosphorus Level 4.4 2.5-4.9 mg/dL Magnesium Level 1.90 1.80-2.40 mg/dL B-Type Natriuretic Peptide 6 0-100 pg/mL Urine Color YELLOW YELLOW Urine Appearance CLEAR CLEAR Urine pH 5.5 5.0-8.0 Urine Specific [place] 1.028 1.001-1.031 Urine Protein NEGATIVE NEGATIVE mg/dL Urine Glucose (UA) NEGATIVE NEGATIVE mg/dL Urine Ketones NEGATIVE NEGATIVE mg/dL Urine Occult Blood NEGATIVE NEGATIVE Urine Nitrate NEGATIVE NEGATIVE Urine Bilirubin NEGATIVE NEGATIVE mg/dL Urine Urobilinogen 0.2 0.2-1.0 mg/dL Urine Leukocyte Esterase NEGATIVE NEGATIVE Jamal/uL Urine Opiates Screen NEGATIVE NEGATIVE Urine Barbiturates Screen NEGATIVE NEGATIVE Urine Phencyclidine Screen NEGATIVE NEGATIVE Urine Amphetamines Screen NEGATIVE NEGATIVE Urine Benzodiazepines Screen NEGATIVE NEGATIVE Urine Cocaine Screen NEGATIVE NEGATIVE Urine Marijuana (THC) Screen NEGATIVE NEGATIVE Total Creatine Kinase 139 21-232 U/L Current Medications Medications (Trade) Dose Ordered Sig/Edmond Route PRN Reason Start Time Stop Time Status Last Admin Dose Admin Acetaminophen (TYLenol 325MG TAB) 650 mg Q6H PRN PO TEMPERATURE GREATER THAN 101.5 01/07/25 20:30 02/06/25 20:29 Albuterol (DUOneb) 1 UDVIAL [id number] IH 01/08/25 00:00 02/07/25 00:00 01/08/25 11:52 1 UDVIAL Albuterol (DUOneb) 1 UDVIAL [id number] IH 01/08/25 00:00 02/07/25 00:00 Aspirin (Aspirin 81mg Ec Tab) 81 mg DAILY PO 01/08/25 09:00 02/07/25 08:59 01/08/25 08:37 81 MG Enoxaparin Sodium (Lovenox) 40 mg DAILY SQ 01/08/25 09:00 02/07/25 08:59 01/08/25 08:37 40 MG Famotidine (Pepcid 20mg Tab) 20 mg DAILY PO 01/08/25 09:00 02/07/25 08:59 01/08/25 08:37 20 MG Guaifenesin (RobiTUSSin SUGAR-FREE 100 MG/ 5 ML UDCUP) 400 mg Q4H PRN PO cough 01/07/25 21:00 02/06/25 20:59 Hydralazine HCl (APRESOLine 20MG INJ) 10 mg Q6H PRN IV For:SBP above 160;DBP above 90 01/07/25 20:30 02/06/25 20:29 Lactulose (Constulose 20gm/ 30ml Udcup) 20 gm BID PRN PO CONSTIPATION 01/07/25 20:30 02/06/25 20:29 Morphine Sulfate (morPHINE 4MG SYG) 2 mg Q4H PRN IVP SEVERE PAIN (7-10) 01/07/25 20:30 01/14/25 20:29 Nitroglycerin (Nitrostat) 0.4 mg PROTOCOL PRN SL CHEST PAIN 01/07/25 20:30 02/06/25 20:29 Ondansetron HCl (zoFRAN 4MG INJ) 4 mg Q6H PRN IV NAUSEA/VOMITING 01/07/25 20:30 02/06/25 20:29 DIAGNOSTICS / RADIOLOGY: PATIENT: SUAD FINE MR#: [id number] : 1985 SEX: F AGE: 39 LOCATION: [facility] ORDER 00 STATUS: REG ER REPORT#: [id number] SERVICE 99 REASON: dizziness ORDERING PHYSICIAN: DOMINGA TO PAC PROCEDURE: HEAD WO - CT HEAD/BRAIN W/O CONTRAST EXAM: CT Head Without IV contrast. CLINICAL HISTORY: dizziness TECHNIQUE: Axial computed tomography images of the head/brain without intravenous contrast. COMPARISON: None provided. FINDINGS: BRAIN: No evidence of acute hemorrhage. No mass lesion. No CT evidence for acute territorial infarct. No midline shift or extra-axial collections. VENTRICLES: No hydrocephalus. ORBITS: The orbits are unremarkable. SINUSES AND MASTOIDS: The paranasal sinuses and mastoid air cells are clear. BONES: No fracture. SOFT TISSUES: Unremarkable. IMPRESSION: No acute intracranial abnormality. /[place] DICTATED BY: ANDERS SERRANO Jr., MD DATE: 01/07/252118 ELECTRONICALLY SIGNED BY: ANDERS SERRANO Jr., MD DATE: 01/07/252118 PATIENT: SUAD FINE MR#: [id number] : 1985 SEX: F AGE: 39 LOCATION: [facility] ORDER 00 STATUS: REG ER [facility] REPORT#: [id number] SERVICE 99 REASON: sob ORDERING PHYSICIAN: DOMINGA TO PAC PROCEDURE: CXR1VW - CHEST 1VW EXAM: CR Chest, 1 View. CLINICAL HISTORY: sob COMPARISON: None provided. FINDINGS: LUNGS: The lungs show no infiltrate or other acute finding. PLEURAL SPACES: No evidence of pleural effusion or pneumothorax. MEDIASTINUM: Cardiac size and mediastinal contours within normal limits. BONES: No aggressive appearing osseous lesion seen. IMPRESSION: No acute cardiopulmonary pathology is evident. 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 BNP 6 * Follow up with echocardiography to rule out takotsubo cardiomyopathy. * Follow up with Cardiology recommendations. * Follow up with tele psych recommendations as psychosocial stressors can be the cause of chest pain. * CT of the chest with PE protocol to screen for pulmonary embolism (given prominent complains of dyspnea, pleuritic chest pain in the interscapular region, and left leg pain consider occult PE. * Follow up with OBIE and CRP profile. Tension headache, Psychosocial stressors * CT head 01/07 was without acute findings. * Start hydroxyzine, melatonin and Celexa as per psych recommendations. * Follow up with tele psych recommendations. * Patient may require follow up with CBT following discharge. Constipation * Give lactulose p.r.n.. ATTESTATION BY PHYSICIAN I have seen and examined the patient. I reviewed the documentation, medical decision making, and treatment plan as noted by the resident physician above. I agree with the findings and plan of care. CONNOR PIZANO MD, MUHAMMAD H MD Jan 08, 2025 13:31
--- NOTE | 2025-01-08 15:47 | TELE.CONS ---
Tele-psychiatry Consultation Patient Name: Magy Lema Patient : 1985 Patient Hospital: [facility] Chief Complaint: History of Present Illness Magy Lema is a 39 years old, female consulted at January 08, shortness of breath hurt was hurting pressure in the head started 3 weeks ago - a big shock / situation at home. Had an arguement with her - and felt that it was unfixable / guilt / disrespect. Kept crying until she was fainting. Pressure in the leg / chest. Leg was feeling so warm. As per nurse - daughter ran away with her boyfriend. Review of Systems Past Psych Medications -Anxiety -no medications hx of anxiety has a child - was given valium Past Medical History: as per chart Past Surgical History: as per chart Past Social History: Allergies: as per chart Medications: no psych meds Physical Examination Vitals: as per chart General: No acute distress, resting comfortably on hospital stretcher Mental Status Examination Mental Status: Awake, alert, oriented to self, place, time and situation Eye Contact: Consistent Speech: Fluent No AIMS or psychomotor disturbances. Mood is good and affect is pleasant and reactive. Thought process is linear, logical, and goal-directed. Thought content is negative for SI, HI, AVH. Memory and cognition are crossly intact. Insight and judgment. - fair/fair Diagnoses: Unspecified Anxiety Unspecified Depression r/o Panic Attacks Plan: Patient seen via tele services. Patient has a history of anxiety since childhood - appears recent strife with approximately 3 weeks ago - and anxiety symptoms of pressure in the head, sob have been occuring since. then. Can consider trial of psychotropics. Patient to greatly benefit with CBT under the guidance of a psychologist. Start Lexapro 5mg PO Daily for anxiety. - once medically cleared / get recent ekg and monitor qtc Start Hydroxyzine 25mg PO TID PRN for anxiety Start Melatonin 5mg PO PRN qhs +/- Trazodone 25mg/50mg PO qhs PRN for insomnia Recommend patient be established with mental health - counselor/therapist/psychiatrist on an outpatient basis Discussed with*: Dr. Anil Vasquez - [phone] / [phone] ICD-10*: Other: Other Time spent preparing for consult:??? 20 min Time spent on audio / video:??? 10 min Time spend post consult:???20 min Zip Code of Telephysician: ---[phone] Electronically Signed By: Marco A Villarneri Lema was informed that the consultation would be provided using video communication and was informed that the he/she could elect to receive in-person medical services instead at any time and such a decision would not limit the patient's access to medical services. Magy Lema consented to the telehealth consultation. At the time of the telehealth consultation, Marco A Zee MD is located in [place] and the patient is located [facility]. Electronically Signed At: Jan 08, 2025 3:47 PM [employer] By Marco A Zee.
[2025-01-08] MEDS ORDERED: IOHEXOL-350 75 ML VIAL IV ONE (15:59)
[2025-01-08] MEDS ORDERED: LACTULOSE 20 GM/30 ML UDCUP PO PRN (17:00)
--- NOTE | 2025-01-08 18:56 | HMCIMG ---
EXAM: CTA Chest with and without Intravenous Contrast for PE evaluation CLINICAL HISTORY: Presents with shortness of breath. TECHNIQUE: Axial CTA images of the chest with and without intravenous contrast using a pulmonary embolism protocol. Multiplanar reconstructed images were created and reviewed. COMPARISON: Chest x-ray dated 01/07/2025. FINDINGS: PULMONARY ARTERIES: No evidence of central or segmental pulmonary embolism is seen. AORTA: There is no evidence for aneurysm or dissection of the thoracic aorta. LUNGS: The lungs appear clear. PLEURAL SPACES: No pleural effusion seen. No pneumothorax evident. HEART: Normal-sized heart.No significant pericardial effusion. LYMPH NODES: No lymphadenopathy. BONES: No focal osseous abnormality or acute fracture. UPPER ABDOMEN: 1.4 x 1.4 cm cortical cyst in the upper pole of the right kidney. IMPRESSION: No evidence pulmonary embolism. No evidence for aneurysm or dissection of the thoracic aorta. No pulmonary infiltrates or pleural effusions. /[place]
[2025-01-08] MEDS: MELATONIN 5 MG TABLET PO PRN (20:14)
--- NOTE | 2025-01-08 20:56 | HMCSR ---
APPROVED REPORT EXAM: Two-dimensional and M-mode echocardiogram with Doppler and color Doppler. INDICATION ICD: New onset of shortness of breath, Chest discomfort 2D Dimensions RVDd 4.4 cm LVEF(%) 64.9 (>50%) LVED Vol(simp.) 104.0 mL IVSd 0.7 (0.7-1.1cm) FS(%) 36 % LVES Vol(simp.) 39.0 mL LVDd 5.2 (3.8-5.6cm) LA (2D) 4.4 (1.6-4.0cm) LVEF(%, simp.) 63 % PWd 0.7 (0.7-1.1cm) Ao Root(2D) 2.8 (2.0-3.7cm) LA ESV INDEX (BP) 31.62 mL/m2 IVSs 0.8 cm LVOT diam 2.1 (1.8-2.4cm) LVDs 3.3 (2.5-4.0cm) IVC diam 1.9 cm PWs 1.1 cm Deformation Strain Apical 4 -22.3 % Apical 2 -21.7 % Apical 3 -21.0 % Global Strain -21.7 % M-Mode Dimensions EPSS 0.4 cm LA (MM) 4.2 (1.6-4.0cm) Ao Root(MM) 3.1 (2.0-3.7cm) Aortic Valve AoV Vmax 1.4 m/s Ao Peak GR 7.7 mmHg LVOT Vmax 1.0 m/s AoV VTI 0.3 m Ao Mean GR 4.5 mmHg LVOT VTI 0.23 m RAFI (VMAX) 2.58 cm2 RAFI (VTI) 2.6 cm2 Mitral Valve MV E Vmax 77.6 cm/s DECEL Time 226 ms MV A Vmax 65.0 cm/s P 1/2 T 46 ms E/A ratio 1.2 MVA (PHT) 4.7 cm2 TDI E/E' Medial 9.7 E/E' Lateral 7.2 Medial E' Peak V 8.02 cm/s Lateral E' Peak V 10.81 cm/s Pulmonary Valve PV Vmax 0.9 m/s PV Mean GR 1.9 mmHg PV Peak GR 3.5 mmHg Tricuspid Valve TR Vmax 2.1 m/s RAP (EST) 3 mmHg RVSP 21.0 mmHg TR Peak GR 18.0 mmHg Left Ventricle The left ventricle is normal size. GLS -22.0%. No regional wall motion abnormalities noted. There is normal left ventricular wall thickness. LVEF is 60-65%. The left ventricular diastolic function is normal. Right Ventricle The right ventricle is mildly dilated. The right ventricular systolic function is normal. Atria The left atrium size is normal. The right atrium size is normal. Aortic Valve The aortic valve is trileaflet and normal in structure. Trivial aortic regurgitation is present. There is no aortic valvular stenosis. Mitral Valve The mitral valve is normal in structure and function. There is trace of mitral valve regurgitation noted. There is no mitral valve stenosis. Tricuspid Valve The tricuspid valve is normal in structure. There is trace of tricuspid valve regurgitation noted. Pulmonic Valve The pulmonary valve is normal in structure. There is no pulmonic valvular regurgitation. Great Vessels The aortic root is normal in size. The IVC is normal in size and collapses >50% with inspiration. Pericardium There is no pericardial effusion. Other Information Quality : Adequate Conclusion The right ventricle is mildly dilated. The right ventricular systolic function is normal. The left atrium size is normal. The left ventricle is normal size. There is normal left ventricular wall thickness. GLS -22.0%. No regional wall motion abnormalities noted. LVEF is 60-65%. The left ventricular diastolic function is normal. The aortic valve is trileaflet and normal in structure. The mitral valve is normal in structure and function. There is no pericardial effusion.
[2025-01-09] VITALS (16 sets, daily range): BP systolic 97–112; BP diastolic 46–72; PULSE 49–94; RESP 10–32; TEMP 97.5–98.3; O2SAT 97–98
--- NOTE | 2025-01-09 01:54 | HMCIMG ---
EXAM: US for Deep Venous Thrombosis, bilateral Lower Extremity. CLINICAL HISTORY: Leg Pain and Swelling TECHNIQUE: Real-time ultrasound scan of the veins of the bilateral lower extremity with color Doppler flow, spectral waveform analysis and compression. COMPARISON: None provided. FINDINGS: DEEP VEINS: The common femoral, superficial femoral, and popliteal veins are echolucent and compressible. There is normal color Doppler flow throughout. The visualized calf veins appear patent. SOFT TISSUES: No popliteal fossa cyst or other abnormalities. IMPRESSION: 1. No evidence of deep venous thrombosis in the bilateral lower extremities. /[place]
[2025-01-09 04:31] LABS: NUCLEATED RED BLOOD CELLS 0.0 % (0.0-0.19); PLATELET COUNT (AUTO) 199.0 K/uL (130-400); RED BLOOD CELL COUNT(AUTO) 4.74 MIL/uL (4.00-5.50); RED CELL DISTRIBUTION WIDTH 13.2 % (11.0-15.5); WHITE BLOOD COUNT (AUTO) 6.8 K/uL (4.8-10.8)
[2025-01-09 04:52] LABS: CREATININE 0.7 mg/dL (0.5-1.0); GLOMERULAR FILTR. RATE CALC 111.0 mL/min (>90); GLUCOSE,RANDOM 90.0 mg/dL (70-105); SODIUM SERUM 137.0 mmol/L (136-145); UREA NITROGEN, BLOOD 14.0 mg/dL (7-18)
[2025-01-09 10:39] LABS: LDL DIRECT 138 mg/dL (0-99)
--- NOTE | 2025-01-09 11:30 | NUR ---
Consulted critical care pulmonology at this time.
--- NOTE | 2025-01-09 13:08 | PN ---
[facility] CARDIOLOGY PROGRESS NOTE Date Patient Seen: Jan 09, 2025 Time of Visit: 12:42 Interval History: This 39-year-old Latin-Fijian female with a history of migraine headaches, anxiety, liver tumor s/p biopsy with benign findings, fatty liver, metaplasia of the esophagus and intestine, and renal cyst who presented to the ED with a three-week history of dyspnea on exertion, intermittent shortness of breath and chest discomfort. Serial troponins were nonspecifically elevated in a flat pattern at 58, 61, 58 and 60. EKG demonstrated sinus rhythm and no ischemic change. A 2D echocardiogram 01/08/2025 demonstrated normal LV systolic function with an LVEF of 60-65%, normal wall motion, normal valvular structures, and a mildly dilated right ventricle. A CT angiogram with PE protocol 01/08/2025 demonstrated no evidence of pulmonary embolus or aortic dissection and a 1.4 x 1.4 cm cortical cyst in the upper pole of the right kidney. There were no pulmonary infiltrates or pleural effusions. A bilateral lower extremity venous Doppler 01/08/2025 demonstrated no evidence of DVT. LDL cholesterol was 138 and HDL 54. Cardiology has been consulted for chest pain. Over the last 3 weeks, the patient has had an increase of stress at home (she had a argument with her hus band and was worried about "losing her and marriage, and began to experience dyspnea and left sided chest discomfort with or without exertion. In addition her daughter runoff with her boyfriend also 2-3 weeks ago. Physical Examination: GENERAL: No acute distress. HEAD: Normal with no signs of head trauma. EYES: PERRLA, EOMI, conjunctiva and sclera normal. NECK: Supple without JVD. There is no tenderness, lymphadenopathy, or masses. No thyromegaly. Normal carotid upstrokes without bruits. LUNGS: Clear breath sounds bilaterally. No wheezes, or rhonchi. HEART: Normal rate and rhythm. Normal S1 and S2 without murmurs, gallop or rub. VASC: Peripheral pulses +2 bilaterally. EXT: No clubbing, cyanosis or edema. NEURO: Awake, alert, and oriented x3. No focal neurological deficits noted. Laboratory: Hematology Labs: Test 01/09/25 04:09 01/08/25 06:15 Range/Units White Blood Count 6.8 4.8-10.8 K/uL Red Blood Count 4.74 4.00-5.50 MIL/uL Hemoglobin 13.5 12.0-16.0 g/dL Hematocrit 39.9 36-48 % Mean Corpuscular Volume 84.2 79-99 fL Mean Corpuscular Hemoglobin 28.5 27.0-33.0 pg Mean Corpuscular Hemoglobin Concent 33.8 32.0-36.0 g/dL Red Cell Distribution Width 13.2 11.0-15.5 % Platelet Count 199 130-400 K/uL Mean Platelet Volume 11.4 H 7.5-10.5 fL Nucleated Red Blood Cells 0.0 0.0-0.19 % Immature Granulocyte % (Auto) 0.3 0-1 % Neutrophils (%) (Auto) 59.2 40.0-77.0 % Lymphocytes (%) (Auto) 27.9 21.0-51.0 % Monocytes (%) (Auto) 7.8 3.0-13.0 % Eosinophils (%) (Auto) 4.4 0.0-8.0 % Basophils (%) (Auto) 0.4 0.0-5.0 % Neutrophils # (Auto) 4.2 1.8-7.7 K/uL Lymphocytes # (Auto) 2.0 1.0-4.8 K/uL Monocytes # (Auto) 0.6 0.1-1.0 K/uL Eosinophils # (Auto) 0.31 0.00-0.70 K/uL Basophils # (Auto) 0.03 0.00-0.20 K/uL Absolute Immature Granulocyte (auto 0.02 0-1 K/uL Chemistry Labs: Test 01/09/25 04:09 01/09/25 04:08 01/08/25 11:34 01/08/25 06:15 Range/Units Sodium Level 137 136-145 mmol/L Potassium Level 3.9 3.5-5.1 mmol/L Chloride Level 101 101-111 mmol/L Carbon Dioxide Level 29 21-32 mmol/L Blood Urea Nitrogen 14 7-18 mg/dL Creatinine 0.7 0.5-1.0 mg/dL Glomerular Filtration Rate Calc 111 >90 mL/min Random Glucose 90 70-105 mg/dL Total Calcium 8.9 8.5-10.1 mg/dL Magnesium Level 2.00 1.80-2.40 mg/dL Triglycerides Level 70 30-200 mg/dL Cholesterol Level 212 H <200 mg/dL LDL Cholesterol 138 H 0-99 mg/dL HDL Cholesterol 54 35-85 mg/dL Troponin I High Sensitivity 60 *H 4-50 ng/L C-Reactive Protein, Quantitative 7.40 H 0.5-3.0 mg/L Phosphorus Level 4.4 2.5-4.9 mg/dL B-Type Natriuretic Peptide 6 0-100 pg/mL Test 01/08/25 06:13 01/07/25 19:12 Range/Units Hemoglobin A1c 5.7 4.0-6.0 % Estimated Average Glucose (eAG) 117 70-126 mg/dL Total Creatine Kinase 139 21-232 U/L Coagulation Labs: Test 01/08/25 11:34 Range/Units D-Dimer Quantitative (PE/DVT) 160 0-500 ng/mL Diagnostics / Radiology: Conclusion The right ventricle is mildly dilated. The right ventricular systolic function is normal. The left atrium size is normal. The left ventricle is normal size. There is normal left ventricular wall thickness. GLS -22.0%. No regional wall motion abnormalities noted. LVEF is 60-65%. The left ventricular diastolic function is normal. The aortic valve is trileaflet and normal in structure. The mitral valve is normal in structure and function. There is no pericardial effusion. DICTATED BY: CHRISTIANO PALACIO MD DATE: 01/08/251244 Impression and Plan: Atypical chest pain: Somatization and psychosocial stressors: Nonspecific minor troponin elevation 58, 61, 58 and 60: Normal LV function and wall motion with LVEF of 60-65% by 2D echo 01/08/2025: CT angio with PE protocol 01/08/2025 with no evidence of pulmonary embolism or aortic dissection: -proceed with anxiolytic therapy -cleared for discharge from a cardiac viewpoint -follow up at [facility] in 1-2 weeks for reassessment Mild hyperlipidemia with LDL cholesterol of 138 and HDL of 54: -trial of Mediterranean diet and weight loss Comorbidities: History of migraine headaches History of anxiety 1.4 x 1.4 cm cortical cyst in the upper pole of the right kidney CHRISTIANO PALACIO MD Jan 09, 2025 13:08
[2025-01-09 13:29] LABS: ABG BASE EXCESS -0.5 mmol/L (-2.0-3.0); ABG HCO3 23.9 mmol/L (21.0-28.0); ABG OXYGEN SATURATION 95.7 % (94.0-98.0); ABG PCO2 39 mmHg (32-45); ABG PH 7.410 (7.350-7.450); CARBON MONOXIDE 0.8 % (0.5-1.5); PO2, ARTERIAL BG 81.0 mmHg (83.0-108.0); TEMPERATURE, CELSIUS BG 37.0 CELSIUS (35.5-37.0); VENT MODE, BG RA (ROOM AIR)
--- NOTE | 2025-01-09 14:34 | EKG ---
[facility] Test Date: 2025-01-09 Test Time: 14:31:07 Pat Name: SUAD MOSELEY Department: [facility] Room: 208 1 Gender: F Quality Manager: TRACY COLEMAN : 1985 Requested By: CEZAR AVILA Order Number: [id number] Reading MD: Kiesha Rodriguez Measurements Intervals [place] Rate: 66 P: 59 TN: 156 QRS: 47 QRSD: 80 T: 50 QT: 430 QTc: 450 Interpretive Statements Normal sinus rhythm Compared to ECG 01/07/2025 19:29:13 No significant changes Electronically Signed On 01-09-2025 19:40:01 CHIMNEY SWEEPER by Kiesha Rodriguez Please click the below link to view image of tracing.
[2025-01-09] MEDS ORDERED: ESCI5TAB PO (15:42)
--- NOTE | 2025-01-09 15:42 | DS ---
Discharge Summary Hospital Course Summary: Ms Roxana Lema is a 39-year-old female who presented with a chief complaint of shortness of breaths. It was associated with chest discomfort. On presentation, CBC was unremarkable, chest x-ray was unremarkable, troponin were mildly elevated 58-61-58. Emergency room physician recommended patient to be admitted with a diagnosis of elevated troponin. She Has had psychosocial stressors at home with a recent argument with her and was worried about "losing her and marriage. Cardiology was consulted due to elevated troponins and mild chest discomfort. Tele psych was also consulted regarding psychosocial stressors as well as anxiety issues. 2D echo was done which showed Normal LV function and wall motion with LVEF of 60- 65%. CT angio with PE protocol was done on 01/08/2025 with no evidence of pulmonary embolism or aortic dissection. D-dimers were also unremarkable. Tele psych consultation recommended starting patient on antidepressants with melatonin and hydroxyzine PRN in the hospital. [facility] pulmonology was also consulted and after doing ABG, they cleared the patient for discharge. From cardiac viewpoint, patient has also been cleared for discharge. Her oxygen saturation is 99% currently, she is vitally stable. She is being discharged with instructions to Follow up with her primary care physician in 3-5 days, Follow up at [facility] with Dr. Vasquez and Shannon Peñaloza RN, JEWISH HISTORY PROFESSOR-C in 2 week and Follow up with [facility]ws faculty assistant for outpatient sleep apnea study. She Has been instructed to continue Lexapro daily as indicated. House Mother(s): Tele-psychiatry Consultation Patient Name: Suad Lema Patient : 1985 Patient Hospital: [facility] Chief Complaint: History of Present Illness Suad Lema is a 39 years old, female consulted at January 08, shortness of breath hurt was hurting pressure in the head started 3 weeks ago - a big shock / situation at home. Had an arguement with her - and felt that it was unfixable / guilt / disrespect. Kept crying until she was fainting. Pressure in the leg / chest. Leg was feeling so warm. As per nurse - daughter ran away with her boyfriend. Review of Systems Past Psych Medications -Anxiety -no medications hx of anxiety has a child - was given valium Past Medical History: as per chart Past Surgical History: as per chart Past Social History: Allergies: as per chart Medications: no psych meds Physical Examination Vitals: as per chart General: No acute distress, resting comfortably on hospital stretcher Mental Status Examination Mental Status: Awake, alert, oriented to self, place, time and situation Eye Contact: Consistent Speech: Fluent No AIMS or psychomotor disturbances. Mood is good and affect is pleasant and reactive. Thought process is linear, logical, and goal-directed. Thought content is negative for SI, HI, AVH. Memory and cognition are crossly intact. Insight and judgment. - fair/fair Diagnoses: Unspecified Anxiety Unspecified Depression r/o Panic Attacks Plan: Patient seen via tele services. Patient has a history of anxiety since childhood - appears recent strife with approximately 3 weeks ago - and anxiety symptoms of pressure in the head, sob have been occuring since. then. Can consider trial of psychotropics. Patient to greatly benefit with CBT under the guidance of a psychologist. Start Lexapro 5mg PO Daily for anxiety. - once medically cleared / get recent ekg and monitor qtc Start Hydroxyzine 25mg PO TID PRN for anxiety Start Melatonin 5mg PO PRN qhs +/- Trazodone 25mg/50mg PO qhs PRN for insomnia Recommend patient be established with mental health - counselor/therapist/psychiatrist on an outpatient basis Discussed with*: Dr. Anil Vasquez - [phone] / [phone] ICD-10*: Other: Other Time spent preparing for consult:??? 20 min Time spent on audio / video:??? 10 min Time spend post consult:???20 min Zip Code of Telephysician: ---[phone] Electronically Signed By: Marco A Lema was informed that the consultation would be provided using video communication and was informed that the he/she could elect to receive in-person medical services instead at any time and such a decision would not limit the patient's access to medical services. Suad Lema consented to the telehealth consultation. At the time of the telehealth consultation, Marco A Andino MD is located in [place] and the patient is located [facility]. Electronically Signed At: Jan 08, 2025 3:47 PM METAL CUTTER By Marco A Andino. 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 She has noted dyspnea on exertion with household activities. She denies pleuritic chest pain or hemoptysis. Currently at rest she is breathing comfortably. Her D-dimer today was normal. Cardiology has been consulted for chest pain. Over the last 3 weeks, the patient has had an increase of stress at home (she had a argument with her and was worried about "losing her and marriage, and began to experience dyspnea and left sided chest discomfort with or without exertion. In addition her daughter runoff with her boyfriend also 2-3 weeks ago. The chest discomfort is described as a tightness and a pinching sensation that radiates to the back and lasts for a few seconds. The patient denies accompanying symptoms, aggravating factors, or relieving factors. Troponin of 58, 61, and 58. EKG demonstrated normal sinus rhythm with a heart rate of 59 bpm with no acute ischemia noted. She complained of a tender scalp and sore bilateral sternocleidomastoid mastoid muscles. CT head 01/07 was without acute findings. 2D echocardiogram is pending. Impression and Plan: Atypical chest pain: Psychosocial stressors: Minor nonspecific troponin elevation Troponin of 58, 61, and 58: -probable catecholamine induced vasoreactivity, headache, and dyspnea -2D echocardiogram to evaluate for Takotsubo cardiomyopathy -CT of the chest with PE protocol to screen for pulmonary embolism (given prominent complains of dyspnea, pleuritic chest pain in the interscapular region, and left leg pain consider occult PE. Tension headache: CT head 01/07 was without acute findings. Comorbidities: Migraines Anxiety Liver tumor s/p biopsy with benign findings Fatty liver Metaplasia of the esophagus and intestine Renal cyst PHYSICIAN ATTESTATION OF PHYSICIAN SYSTEM ENGINEER DOCUMENTATION: I attest that I was physically present for the beverly portions of the service and evaluated the patient with the Physician Sales Route Driver Helper, and I reviewed and discussed the case with the Physician Sales Route Driver Helper and made modifications to the Physician Sales Route Driver Helper's findings and plans of care as documented above NELIA SARAVIA Jan 08, 2025 12:12 CHRISTIANO VASQUEZ MD Jan 08, 2025 14:30 Electronically Signed by: NELIA RAMIREZ03/10/24 1232 Electronically Co-Signed by: CHRISTIANO VASQUEZ MD01/08/25 1430 [facility] CARDIOLOGY PROGRESS NOTE Impression and Plan: Atypical chest pain: Somatization and psychosocial stressors: Nonspecific minor troponin elevation 58, 61, 58 and 60: Normal LV function and wall motion with LVEF of 60-65% by 2D echo 01/08/2025: CT angio with PE protocol 01/08/2025 with no evidence of pulmonary embolism or aortic dissection: -proceed with anxiolytic therapy -cleared for discharge from a cardiac viewpoint -follow up at [facility] in 1-2 weeks for reassessment Mild hyperlipidemia with LDL cholesterol of 138 and HDL of 54: -trial of Mediterranean diet and weight loss Comorbidities: History of migraine headaches History of anxiety 1.4 x 1.4 cm cortical cyst in the upper pole of the right kidney CHRISTIANO VASQUEZ MD Jan 09, 2025 13:08 Electronically Signed by: CHRISTIANO VASQUEZ MD01/09/25 1308 Electronically Co-Signed by: Procedure(s): PATIENT: SUAD FINE MR#: [id number] : 1985 SEX: F AGE: 39 LOCATION: [facility] ORDER 00 STATUS: REG [facility] REPORT#: [id number] SERVICE 99 REASON: sob ORDERING PHYSICIAN: DOMINGA TO PROCEDURE: CXR1VW - CHEST 1VW EXAM: CR Chest, 1 View. CLINICAL HISTORY: sob COMPARISON: None provided. FINDINGS: LUNGS: The lungs show no infiltrate or other acute finding. PLEURAL SPACES: No evidence of pleural effusion or pneumothorax. MEDIASTINUM: Cardiac size and mediastinal contours within normal limits. BONES: No aggressive appearing osseous lesion seen. IMPRESSION: No acute cardiopulmonary pathology is evident. /[place] DICTATED BY: SOUMYA SORIANO MD DATE: 01/07/252039 ELECTRONICALLY SIGNED BY: SOUMYA SORIANO MD DATE: 01/07/252039 PATIENT: SUAD FINE MR#: [id number] : 1985 SEX: F AGE: 39 LOCATION: [facility] ORDER 00 STATUS: REG [facility] REPORT#: [id number] SERVICE 99 REASON: dizziness ORDERING PHYSICIAN: DOMINGA TO PROCEDURE: HEAD WO - CT HEAD/BRAIN W/O CONTRAST EXAM: CT Head Without IV contrast. CLINICAL HISTORY: dizziness TECHNIQUE: Axial computed tomography images of the head/brain without intravenous contrast. COMPARISON: None provided. FINDINGS: BRAIN: No evidence of acute hemorrhage. No mass lesion. No CT evidence for acute territorial infarct. No midline shift or extra-axial collections. VENTRICLES: No hydrocephalus. ORBITS: The orbits are unremarkable. SINUSES AND MASTOIDS: The paranasal sinuses and mastoid air cells are clear. BONES: No fracture. SOFT TISSUES: Unremarkable. IMPRESSION: No acute intracranial abnormality. /[place] DICTATED BY: ANDERS SERRANO Jr., MD DATE: 01/07/252118 ELECTRONICALLY SIGNED BY: ANDERS SERRANO Jr., MD DATE: 01/07/252118 PATIENT: SUAD FINE MR#: [id number] : 1985 SEX: F AGE: 39 LOCATION: H ORDER 29 STATUS: ADM IN REPORT#: [id number] SERVICE 28 REASON: New onset SOB, chest discomfort ORDERING PHYSICIAN: CEZAR CAMERON MD PROCEDURE: ECHO [facility] - ECHO 2-D COMPLETE APPROVED REPORT EXAM: Two-dimensional and M-mode echocardiogram with Doppler and color Doppler. INDICATION ICD: New onset of shortness of breath, Chest discomfort 2D Dimensions RVDd 4.4 cm LVEF(%) 64.9 (>50%) LVED Vol(simp.) 104.0 mL IVSd 0.7 (0.7-1.1cm) FS(%) 36 % LVES Vol(simp.) 39.0 mL LVDd 5.2 (3.8-5.6cm) LA (2D) 4.4 (1.6-4.0cm) LVEF(%, simp.) 63 % PWd 0.7 (0.7-1.1cm) Ao Root(2D) 2.8 (2.0-3.7cm) LA ESV INDEX (BP) 31.62 mL/m2 IVSs 0.8 cm LVOT diam 2.1 (1.8-2.4cm) LVDs 3.3 (2.5-4.0cm) IVC diam 1.9 cm PWs 1.1 cm Deformation Strain Apical 4 -22.3 % Apical 2 -21.7 % Apical 3 -21.0 % Global Strain -21.7 % M-Mode Dimensions EPSS 0.4 cm LA (MM) 4.2 (1.6-4.0cm) Ao Root(MM) 3.1 (2.0-3.7cm) Aortic Valve AoV Vmax 1.4 m/s Ao Peak GR 7.7 mmHg LVOT Vmax 1.0 m/s AoV VTI 0.3 m Ao Mean GR 4.5 mmHg LVOT VTI 0.23 m RAFI (VMAX) 2.58 cm2 RAFI (VTI) 2.6 cm2 Mitral Valve MV E Vmax 77.6 cm/s DECEL Time 226 ms MV A Vmax 65.0 cm/s P 1/2 T 46 ms E/A ratio 1.2 MVA (PHT) 4.7 cm2 TDI E/E' Medial 9.7 E/E' Lateral 7.2 Medial E' Peak V 8.02 cm/s Lateral E' Peak V 10.81 cm/s Pulmonary Valve PV Vmax 0.9 m/s PV Mean GR 1.9 mmHg PV Peak GR 3.5 mmHg Tricuspid Valve TR Vmax 2.1 m/s RAP (EST) 3 mmHg RVSP 21.0 mmHg TR Peak GR 18.0 mmHg Left Ventricle The left ventricle is normal size. GLS -22.0%. No regional wall motion abnormalities noted. There is normal left ventricular wall thickness. LVEF is 60-65%. The left ventricular diastolic function is normal. Right Ventricle The right ventricle is mildly dilated. The right ventricular systolic function is normal. Atria The left atrium size is normal. The right atrium size is normal. Aortic Valve The aortic valve is trileaflet and normal in structure. Trivial aortic regurgitation is present. There is no aortic valvular stenosis. Mitral Valve The mitral valve is normal in structure and function. There is trace of mitral valve regurgitation noted. There is no mitral valve stenosis. Tricuspid Valve The tricuspid valve is normal in structure. There is trace of tricuspid valve regurgitation noted. Pulmonic Valve The pulmonary valve is normal in structure. There is no pulmonic valvular regurgitation. Great Vessels The aortic root is normal in size. The IVC is normal in size and collapses >50% with inspiration. Pericardium There is no pericardial effusion. Other Information Quality : Adequate Conclusion The right ventricle is mildly dilated. The right ventricular systolic function is normal. The left atrium size is normal. The left ventricle is normal size. There is normal left ventricular wall thickness. GLS -22.0%. No regional wall motion abnormalities noted. LVEF is 60-65%. The left ventricular diastolic function is normal. The aortic valve is trileaflet and normal in structure. The mitral valve is normal in structure and function. There is no pericardial effusion. DICTATED BY: CHRISTIANO VASQUEZ MD DATE: 01/08/25 124 ELECTRONICALLY SIGNED BY: CHRISTIANO VASQUEZ MD DATE: 01/08/252055 PATIENT: SUAD FINE MR#: [id number] : 1985 SEX: F AGE: 39 LOCATION: 2B ORDER 26 STATUS: ADM IN REPORT#: [id number] SERVICE 24 REASON: sob ORDERING PHYSICIAN: NELIA SARAVIA JEWISH HISTORY PROFESSOR PROCEDURE: CHES PE - CT CHEST PE PROTOCOL WWO CONT EXAM: CTA Chest with and without Intravenous Contrast for PE evaluation CLINICAL HISTORY: Presents with shortness of breath. TECHNIQUE: Axial CTA images of the chest with and without intravenous contrast using a pulmonary embolism protocol. Multiplanar reconstructed images were created and reviewed. COMPARISON: Chest x-ray dated 01/07/2025. FINDINGS: PULMONARY ARTERIES: No evidence of central or segmental pulmonary embolism is seen. AORTA: There is no evidence for aneurysm or dissection of the thoracic aorta. LUNGS: The lungs appear clear. PLEURAL SPACES: No pleural effusion seen. No pneumothorax evident. HEART: Normal-sized heart.No significant pericardial effusion. LYMPH NODES: No lymphadenopathy. BONES: No focal osseous abnormality or acute fracture. UPPER ABDOMEN: 1.4 x 1.4 cm cortical cyst in the upper pole of the right kidney. IMPRESSION: No evidence pulmonary embolism. No evidence for aneurysm or dissection of the thoracic aorta. No pulmonary infiltrates or pleural effusions. /[place] DICTATED BY: TANGELA VELAZQUEZ MD DATE: 01/08/251954 ELECTRONICALLY SIGNED BY: TANGELA VELAZQUEZ MD DATE: 01/08/251954 PATIENT: SUAD FINE MR#: [id number] : 1985 SEX: F AGE: 39 LOCATION: [facility] ORDER 26 STATUS: [facility]M [facility] REPORT#: [id number] SERVICE 24 REASON: LLE numbness ORDERING PHYSICIAN: NELIA SARAVIA JEWISH HISTORY PROFESSOR PROCEDURE: VENOUS ALEC - US VENOUS DOPPLER BILATERAL EXAM: US for Deep Venous Thrombosis, bilateral Lower Extremity. CLINICAL HISTORY: Leg Pain and Swelling TECHNIQUE: Real-time ultrasound scan of the veins of the bilateral lower extremity with color Doppler flow, spectral waveform analysis and compression. COMPARISON: None provided. FINDINGS: DEEP VEINS: The common femoral, superficial femoral, and popliteal veins are echolucent and compressible. There is normal color Doppler flow throughout. The visualized calf veins appear patent. SOFT TISSUES: No popliteal fossa cyst or other abnormalities. IMPRESSION: 1. No evidence of deep venous thrombosis in the bilateral lower extremities. /[place] DICTATED BY: ROB COOK MD DATE: 01/09/25251 ELECTRONICALLY SIGNED BY: ROB COOK MD DATE: 01/09/25251 PATIENT: SUAD FINE R#: [id number] : 1985 SEX: F AGE: 39 LOCATION: [facility] ROOM/BED: [facility] ORDER [id number] REPORT#: [id number] REASON: ORDERING PHYSICIAN: CEZAR CAMERON MD PROCEDURE: EKG - 12 LEAD EKG TRACING- [facility] Test Date: 2025-01-09 Test Time: 14:31:07 Pat Name: SUAD LEMA Department: [facility] Room: [facility] Gender: F Dermatological Surgeon: TRACY COLEMAN : 1985 Requested By: CEZAR AVILA Order Number: [id number] Reading MD: Measurements Intervals [place] Rate: 66 P: 59 DE: 156 QRS: 47 QRSD: 80 T: 50 QT: 430 QTc: 450 Interpretive Statements Normal sinus rhythm No previous ECG available for comparison Please click the below link to view image of tracing. PATIENT: SUAD FINE R#: [id number] : 1985 SEX: F AGE: 39 LOCATION: [facility] ROOM/BED: 2081 ORDER [id number] REPORT#: [id number] REASON: ORDERING PHYSICIAN: DOMINGA TO PROCEDURE: EKG - 12 LEAD EKG TRACING- [facility] Test Date: 2025-01-07 Test Time: 19:29:13 Pat Name: SUAD LEMA Department: [facility] Room: 208 Gender: F Dermatological Surgeon: [id number] : 1985 Requested By: DOMINGA TO Order Number: [id number] Reading MD: Christiano Vasquez Measurements Intervals [place] Rate: 59 P: 51 DE: 158 QRS: 33 QRSD: 101 T: 35 QT: 440 QTc: 435 Interpretive Statements Sinus rhythm Compared to ECG 06/29/2021 14:02:36 Sinus bradycardia no longer present Electronically Signed On 01-09-2025 13:29:42 METAL CUTTER by Christiano Vasquez Please click the below link to view image of tracing. Assessment/Plan: ASSESSMENT: Atypical chest pain, POA Minor nonspecific troponin elevation, POA Dyspnea, POA Tension headache, POA Psychosocial stressors, POA Constipation, POA Eczema Past History: Migraines, Anxiety, Liver tumor s/p biopsy with benign findings, Fatty liver, Metaplasia of the esophagus and intestine, Renal cyst Discharge Instructions: Follow up with your primary care physician in 3-5 days. Follow up at [facility] with Dr. Vasquez and Shannon Peñaloza, RN, JEWISH HISTORY PROFESSOR-C in 2 weeks Follow up with [facility]ws faculty assistant for outpatient sleep apnea study and to rule out CONG. Please continue Lexapro daily as indicated. Home Medications: Discontinued Scripts Ibuprofen (Ibuprofen) 600 Mg Tablet, 600 MG PO Q6H PRN for PAIN, #30 TAB Prov:BRAD FREDERICK MD 12/05/21 Naproxen (Naproxen) 500 Mg Tablet.dr 500 MG PO BIDPC, #15 TAB Prov:JOSE AGUDELO JEWISH HISTORY PROFESSOR 06/29/21 Cyclobenzaprine HCl (Flexeril) 10 Mg Tab, 10 MG PO TID, #15 TAB Prov:FITTINGJOSE JEWISH HISTORY PROFESSOR 06/29/21 New Medications: Escitalopram Oxalate (Lexapro) 5 Mg Tablet 1 TAB PO DAILY for 30 Days, #30 TAB 0 Refills Time spent arranging discharge: 31-60 minutes ATTESTATION BY PHYSICIAN I have seen and examined the patient. I reviewed the documentation, medical decision making, and treatment plan as noted by the resident physician above. I agree with the findings and plan of care. MAURICIO PIZANO MD, MUHAMMAD H MD Jan 09, 2025 15:42
--- NOTE | 2025-01-09 18:30 | CONS ---
[facility] CONSULTATION NOTE Date Patient Seen: Jan 09, 2025 Time of Visit: 18:12 Supervising Physician: Ihsan Camarena MD Reason for Consultation: SOB Primary Care Physician: self referral Outpatient Specialists: none Inpatient Consults: Dr. 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 She presented on 01/07/25 to the ED for evaluation of complaints of shortness of the breath. Patient reports shortness of the breath started three days ago on and off. She describes it as episode of shortness of the breath with tingling to fingers hip and leg with the associated headache. She has undergone extensive cardiac workup including troponin series which has a been minimally elevated and stable. Head CT was negative for intracranial abnormality. CTA of the chest negative for pulmonary embolism, also negative for abdominal aorta aneurysm or dissection. Patient with no findings of pneumoniae or pleural effusions. Venous Doppler negative for DVT to bilateral lower extremity. ABG unremarkable. Pt's symptoms are likely from hyperventilation from stress and anxiety. Cardiology has cleared for Discharge. From pulmonary standpoint pt is stable for discharge. She may follow up with pulmonology of choice for PFT's or sleep study. PAST MEDICAL HX: see above PAST SURGICAL HX: noncontributory SOCIAL HISTORY: No tobacco, ETOH, or illicit drug use Coded Allergies: Sulfa (Sulfonamide Antibiotics) (Unverified Allergy, Unknown, 06/29/21) iron (Unverified Allergy, Unknown, 06/29/21) REVIEW OF SYSTEMS: 12 point ROS reviewed with patient. Pertinent positives mentioned above. Otherwise negative. PHYSICAL EXAM: GENERAL: alert, weak, awake oriented x 3 HEENT: Sclera non icteric, moist mucosa NECK: Supple, no JVD, trachea midline LUNGS: Clear breath sounds bilaterally. No wheezes HEART: Regular rate and rhythm. Normal S1 and S2, without murmurs ABD: Abdomen soft, nontender. Bowel sounds present EXT: No clubbing cyanosis or edema NEURO: Alert and oriented to person, follows commands Vital Signs (last 8hr) Date Time Temp Pulse Resp B/P (MAP) Pulse Ox O2 Delivery O2 Flow Rate FiO2 01/09/25 16:00 97 Room Air* 0 21 01/09/25 16:00 97.5 54 17 111/63 97 Room Air 01/09/25 15:00 57 20 105/62 97 Room Air 01/09/25 14:00 56 13 102/60 96 Room Air 01/09/25 13:00 60 10 99/65 99 Room Air 01/09/25 12:00 98 Room Air* 0 21 01/09/25 12:00 73 23 97/72 97 01/09/25 11:33 85 16 N/A Room Air 01/09/25 11:31 85 20 01/09/25 11:00 98.1 63 18 101/47 98 Room Air LABS: Hematology Labs: Test 01/09/25 04:09 01/08/25 06:15 Range/Units White Blood Count 6.8 4.8-10.8 K/uL Red Blood Count 4.74 4.00-5.50 MIL/uL Hemoglobin 13.5 12.0-16.0 g/dL Hematocrit 39.9 36-48 % Mean Corpuscular Volume 84.2 79-99 fL Mean Corpuscular Hemoglobin 28.5 27.0-33.0 pg Mean Corpuscular Hemoglobin Concent 33.8 32.0-36.0 g/dL Red Cell Distribution Width 13.2 11.0-15.5 % Platelet Count 199 130-400 K/uL Mean Platelet Volume 11.4 H 7.5-10.5 fL Nucleated Red Blood Cells 0.0 0.0-0.19 % Immature Granulocyte % (Auto) 0.3 0-1 % Neutrophils (%) (Auto) 59.2 40.0-77.0 % Lymphocytes (%) (Auto) 27.9 21.0-51.0 % Monocytes (%) (Auto) 7.8 3.0-13.0 % Eosinophils (%) (Auto) 4.4 0.0-8.0 % Basophils (%) (Auto) 0.4 0.0-5.0 % Neutrophils # (Auto) 4.2 1.8-7.7 K/uL Lymphocytes # (Auto) 2.0 1.0-4.8 K/uL Monocytes # (Auto) 0.6 0.1-1.0 K/uL Eosinophils # (Auto) 0.31 0.00-0.70 K/uL Basophils # (Auto) 0.03 0.00-0.20 K/uL Absolute Immature Granulocyte (auto 0.02 0-1 K/uL Chemistry Labs: Test 01/09/25 12:30 01/09/25 04:09 01/09/25 04:08 01/08/25 11:34 Range/Units Total Creatine Kinase 79 # 21-232 U/L Sodium Level 137 136-145 mmol/L Potassium Level 3.9 3.5-5.1 mmol/L Chloride Level 101 101-111 mmol/L Carbon Dioxide Level 29 21-32 mmol/L Blood Urea Nitrogen 14 7-18 mg/dL Creatinine 0.7 0.5-1.0 mg/dL Glomerular Filtration Rate Calc 111 >90 mL/min Random Glucose 90 70-105 mg/dL Total Calcium 8.9 8.5-10.1 mg/dL Magnesium Level 2.00 1.80-2.40 mg/dL Triglycerides Level 70 30-200 mg/dL Cholesterol Level 212 H <200 mg/dL LDL Cholesterol 138 H 0-99 mg/dL HDL Cholesterol 54 35-85 mg/dL Troponin I High Sensitivity 60 *H 4-50 ng/L C-Reactive Protein, Quantitative 7.40 H 0.5-3.0 mg/L Test 01/08/25 06:15 01/08/25 06:13 Range/Units Phosphorus Level 4.4 2.5-4.9 mg/dL B-Type Natriuretic Peptide 6 0-100 pg/mL Hemoglobin A1c 5.7 4.0-6.0 % Estimated Average Glucose (eAG) 117 70-126 mg/dL Coagulation Labs: Test 01/08/25 11:34 Range/Units D-Dimer Quantitative (PE/DVT) 160 0-500 ng/mL DIAGNOSTICS / RADIOLOGY RESULTS: [place] [address] [place] [id number] IMAGING REPORT Signed PATIENT: SUAD FINE MR#: [id number] : 1985 SEX: F AGE: 39 LOCATION: 2BH ORDER 26 STATUS: ADM IN [facility] REPORT#: [id number] SERVICE 24 REASON: LLE numbness ORDERING PHYSICIAN: NELIA SARAVIA ENVIRONMENTAL LABORATORY TECHNICIAN PROCEDURE: VENOUS ALEC - US VENOUS DOPPLER BILATERAL EXAM: US for Deep Venous Thrombosis, bilateral Lower Extremity. CLINICAL HISTORY: Leg Pain and Swelling TECHNIQUE: Real-time ultrasound scan of the veins of the bilateral lower extremity with color Doppler flow, spectral waveform analysis and compression. COMPARISON: None provided. FINDINGS: DEEP VEINS: The common femoral, superficial femoral, and popliteal veins are echolucent and compressible. There is normal color Doppler flow throughout. The visualized calf veins appear patent. SOFT TISSUES: No popliteal fossa cyst or other abnormalities. IMPRESSION: 1. No evidence of deep venous thrombosis in the bilateral lower extremities. /[place] DICTATED BY: ROB COOK MD DATE: 01/09/25251 ELECTRONICALLY SIGNED BY: ROB COOK MD DATE: 01/09/25251 [place] [id number] IMAGING REPORT Signed PATIENT: SUAD FINE MR#: [id number] : 1985 SEX: F AGE: 39 LOCATION: [facility] ORDER 26 STATUS: ADM IN REPORT#: [id number] SERVICE 24 REASON: sob ORDERING PHYSICIAN: NELIA SARAVIA ENVIRONMENTAL LABORATORY TECHNICIAN PROCEDURE: CHES PE - CT CHEST PE PROTOCOL WWO CONT EXAM: CTA Chest with and without Intravenous Contrast for PE evaluation CLINICAL HISTORY: Presents with shortness of breath. TECHNIQUE: Axial CTA images of the chest with and without intravenous contrast using a pulmonary embolism protocol. Multiplanar reconstructed images were created and reviewed. COMPARISON: Chest x-ray dated 01/07/2025. FINDINGS: PULMONARY ARTERIES: No evidence of central or segmental pulmonary embolism is seen. AORTA: There is no evidence for aneurysm or dissection of the thoracic aorta. LUNGS: The lungs appear clear. PLEURAL SPACES: No pleural effusion seen. No pneumothorax evident. HEART: Normal-sized heart.No significant pericardial effusion. LYMPH NODES: No lymphadenopathy. BONES: No focal osseous abnormality or acute fracture. UPPER ABDOMEN: 1.4 x 1.4 cm cortical cyst in the upper pole of the right kidney. IMPRESSION: No evidence pulmonary embolism. No evidence for aneurysm or dissection of the thoracic aorta. No pulmonary infiltrates or pleural effusions. /[place] DICTATED BY: TANGELA VELAZQUEZ MD DATE: 01/08/251954 ELECTRONICALLY SIGNED BY: TANGELA VELAZQUEZ MD DATE: 01/08/251954 [place] [address] IMAGING REPORT Signed PATIENT: SUAD FINE MR#: [id number] : 1985 SEX: F AGE: 39 LOCATION: [facility] ORDER 1130 STATUS: ADM IN REPORT#: [id number] SERVICE 1129 REASON: New onset SOB, chest discomfort ORDERING PHYSICIAN: CEZAR CAMERON MD PROCEDURE: ECHO CMP - ECHO 2-D COMPLETE APPROVED REPORT EXAM: Two-dimensional and M-mode echocardiogram with Doppler and color Doppler. INDICATION ICD: New onset of shortness of breath, Chest discomfort 2D Dimensions RVDd 4.4 cm LVEF(%) 64.9 (>50%) LVED Vol(simp.) 104.0 mL IVSd 0.7 (0.7-1.1cm) FS(%) 36 % LVES Vol(simp.) 39.0 mL LVDd 5.2 (3.8-5.6cm) LA (2D) 4.4 (1.6-4.0cm) LVEF(%, simp.) 63 % PWd 0.7 (0.7-1.1cm) Ao Root(2D) 2.8 (2.0-3.7cm) LA ESV INDEX (BP) 31.62 mL/m2 IVSs 0.8 cm LVOT diam 2.1 (1.8-2.4cm) LVDs 3.3 (2.5-4.0cm) IVC diam 1.9 cm PWs 1.1 cm Deformation Strain Apical 4 -22.3 % Apical 2 -21.7 % Apical 3 -21.0 % Global Strain -21.7 % M-Mode Dimensions EPSS 0.4 cm LA (MM) 4.2 (1.6-4.0cm) Ao Root(MM) 3.1 (2.0-3.7cm) Aortic Valve AoV Vmax 1.4 m/s Ao Peak GR 7.7 mmHg LVOT Vmax 1.0 m/s AoV VTI 0.3 m Ao Mean GR 4.5 mmHg LVOT VTI 0.23 m RAFI (VMAX) 2.58 cm2 RAFI (VTI) 2.6 cm2 Mitral Valve MV E Vmax 77.6 cm/s DECEL Time 226 ms MV A Vmax 65.0 cm/s P 1/2 T 46 ms E/A ratio 1.2 MVA (PHT) 4.7 cm2 TDI E/E' Medial 9.7 E/E' Lateral 7.2 Medial E' Peak V 8.02 cm/s Lateral E' Peak V 10.81 cm/s Pulmonary Valve PV Vmax 0.9 m/s PV Mean GR 1.9 mmHg PV Peak GR 3.5 mmHg Tricuspid Valve TR Vmax 2.1 m/s RAP (EST) 3 mmHg RVSP 21.0 mmHg TR Peak GR 18.0 mmHg Left Ventricle The left ventricle is normal size. GLS -22.0%. No regional wall motion abnormalities noted. There is normal left ventricular wall thickness. LVEF is 60-65%. The left ventricular diastolic function is normal. Right Ventricle The right ventricle is mildly dilated. The right ventricular systolic function is normal. Atria The left atrium size is normal. The right atrium size is normal. Aortic Valve The aortic valve is trileaflet and normal in structure. Trivial aortic regurgitation is present. There is no aortic valvular stenosis. Mitral Valve The mitral valve is normal in structure and function. There is trace of mitral valve regurgitation noted. There is no mitral valve stenosis. Tricuspid Valve The tricuspid valve is normal in structure. There is trace of tricuspid valve regurgitation noted. Pulmonic Valve The pulmonary valve is normal in structure. There is no pulmonic valvular regurg itation. Great Vessels The aortic root is normal in size. The IVC is normal in size and collapses >50% with inspiration. Pericardium There is no pericardial effusion. Other Information Quality : Adequate Conclusion The right ventricle is mildly dilated. The right ventricular systolic function is normal. The left atrium size is normal. The left ventricle is normal size. There is normal left ventricular wall thickness. GLS -22.0%. No regional wall motion abnormalities noted. LVEF is 60-65%. The left ventricular diastolic function is normal. The aortic valve is trileaflet and normal in structure. The mitral valve is normal in structure and function. There is no pericardial effusion. DICTATED BY: TRAY VASQUEZ MD DATE: 01/08/25 124 ELECTRONICALLY SIGNED BY: TRAY VASQUEZ MD DATE: 01/08/252055 [place] [address] IMAGING REPORT Signed PATIENT: SUAD FINE MR#: [id number] : 1985 SEX: F AGE: 39 LOCATION: [facility] ORDER 00 STATUS: REG REPORT#: [id number] SERVICE 99 REASON: dizziness ORDERING PHYSICIAN: DOMINGA TO PAC PROCEDURE: HEAD WO - CT HEAD/BRAIN W/O CONTRAST EXAM: CT Head Without IV contrast. CLINICAL HISTORY: dizziness TECHNIQUE: Axial computed tomography images of the head/brain without intravenous contrast. COMPARISON: None provided. FINDINGS: BRAIN: No evidence of acute hemorrhage. No mass lesion. No CT evidence for acute territorial infarct. No midline shift or extra-axial collections. VENTRICLES: No hydrocephalus. ORBITS: The orbits are unremarkable. SINUSES AND MASTOIDS: The paranasal sinuses and mastoid air cells are clear. BONES: No fracture. SOFT TISSUES: Unremarkable. IMPRESSION: No acute intracranial abnormality. /[place] DICTATED BY: ANDERS SERRANO Jr., MD DATE: 01/07/252118 ELECTRONICALLY SIGNED BY: ANDERS SERRANO Jr., MD DATE: 01/07/252118 [facility] [address] [place] [address] IMAGING REPORT Signed PATIENT: SUAD FINE MR#: [id number] : 1985 SEX: F AGE: 39 LOCATION: [facility] ORDER 00 STATUS: REG [facility] REPORT#: [id number] SERVICE 99 REASON: sob ORDERING PHYSICIAN: DOMINGA TO PAC PROCEDURE: CXR1VW - CHEST 1VW EXAM: CR Chest, 1 View. CLINICAL HISTORY: sob COMPARISON: None provided. FINDINGS: LUNGS: The lungs show no infiltrate or other acute finding. PLEURAL SPACES: No evidence of pleural effusion or pneumothorax. MEDIASTINUM: Cardiac size and mediastinal contours within normal limits. BONES: No aggressive appearing osseous lesion seen. IMPRESSION: No acute cardiopulmonary pathology is evident. /[place] DICTATED BY: SOUMYA SORIANO MD DATE: 01/07/252039 ELECTRONICALLY SIGNED BY: SOUMYA SORIANO MD DATE: 01/07/252039 PLAN ABG Supplemental 02 as needed. Maintain aspiration precautions at all time Follow hemodynamics. Vital signs per facility protocol Follow cardiology recommendations stress relief strategies Manage anxiety Follow up with pulmonology of choice for PFT's Prophylaxis: Continue GI and DVT prophylaxis Code Status: Full Resuscitation Disposition: per primary team Other: Total patient care time exceeds 35 minutes excluding all procedures. ATTESTATION BY PHYSICIAN I have evaluated the patient chart, medical records, and spoke with appropriate staff. I reviewed the documentation, medical decision making, and treatment plan as noted by the mid-level provider above. I agree with the findings and plan of care. MARIA ELENA Vallejo MD [facility] Jan 09, 2025 18:30
--- NOTE | 2025-01-11 13:46 | NUR ---
CALLED PATIENT TO CALL ME BACK NEED TO LET HER KNOW WE ARE OUT OF NETWORK WITH INSURANCE AND TO EXPLAIN TO HER OF OTHER OPTIONS FOR SLEEP STUDY ORDERED Addendum: 01/11/25 at 1348 by JELENA CHAND Amended: Links added.
== END 2025-01-09 17:10 | disposition home or self-care (01) | DRG 313 ==
LOC: EDH 18:49 → EDHIP 20:13 → 2BH 01-08 09:49
PROVIDERS: ADMIT Internal Medicine; ATTEND Internal Medicine
DX: R07.89 Other chest pain (principal); E78.5 Hyperlipidemia, unspecified; F32.A Depression, unspecified; K76.0 Fatty (change of) liver, not elsewhere classified; F41.8 Other specified anxiety disorders; G44.209 Tension-type headache, unspecified, not intractable; K22.70 Barrett's esophagus without dysplasia; K76.9 Liver disease, unspecified; K59.00 Constipation, unspecified; L30.9 Dermatitis, unspecified; G43.909 Migraine, unspecified, not intractable, without status migrainosus; Z79.82 Long term (current) use of aspirin; Z90.710 Acquired absence of both cervix and uterus; Z79.899 Other long term (current) drug therapy
CPT/HCPCS: 36415; 36600; 70450; 71045; 71270; 80048; 80061; 80305; 81003; 82435; 82550; 82803; 82947; 83036; 83605; 83735; 83880; 84100; 84132; 84295; 84484; 85018; 85025; 85027; 85378; 86140; 93005; 93306; 93356; 93970; 94640; 94664; 99285; G0378; J1650; J2060; Q9967